=== PATIENT | male | born 1955 | race Caucasian/White ===

== ENCOUNTER → 2016-07-01 | Outpatient (CLI) | payer OTHER ==
[~2016-07-01] MED LIST: ASPI81TA21 PO; CLOP1TAB15 PO; EZET10TA41 PO; METO50TA7 PO; NTRGSL/4 UT; TRIA37.5 PO
[2016-07-01 17:21] LABS: BASO % 0.2 %; BASO ABS # 0.04 K/uL (0-0.2); COMPLETE YES; EOS % 0.2 %; HEMATOCRIT 41.5 % (42-52); IG% 0.3 %; LYMPH % 8.6 %; LYMPH ABS # 1.73 K/uL (1.2-3.4); MEAN CELL VOLUME 87.2 fL (80-100); MEAN CORPUSCULAR HGB CONC 33.3 g/dl (32-36); MEAN PLATELET VOLUME 9.1 fL (7.4-10.4); MONO % 8.9 %; NEUT % 81.8 %; PLATELET COUNT 343 K/uL (130-400); RED BLOOD COUNT 4.76 M/uL (4.7-6.1); WHITE BLOOD COUNT 20.18 K/uL (4.8-10.8)
[2016-07-01 18:00] LABS: ALT/SGPT 30 U/L (12-78); BLOOD UREA NITROGEN 24 mg/dl (7-18); BUN/CREATININE RATIO 18.3 (10-20); CARBON DIOXIDE 29 mmol/L (21-32); CHLORIDE 100 mmol/L (98-107); CHOLESTEROL 133 mg/dl (0-200); GLUCOSE 90 mg/dl (70-99); POTASSIUM 3.6 mmol/L (3.5-5.1); SODIUM 138 mmol/L (136-145)
[2016-07-01 18:04] LABS: ALB/GLOB RATIO 0.8 (0.9-2); ALKALINE PHOSPHATASE 101 U/L (45-117); AST/SGOT 22 U/L (15-37); CHOLESTEROL/HDL RATIO 3.1; HDL CHOLESTEROL 43 mg/dl; LDL CHOLESTEROL CALCULATED 77 mg/dl; TRIGLYCERIDES 66 mg/dl (0-150); VERY LOW DENSITY LIPOPROT CALC 13 mg/dl
[2016-07-01 18:15] LABS: CALCIUM 9.6 mg/dl (8.5-10.1)
[2016-07-02 08:21] LABS: ESTIMATED AVERAGE GLUCOSE 126 mg/dl; HA1C FLAG Normal (Normal)
== END | disposition home or self-care (01) ==
LOC: C.LAB1850 16:35
PROVIDERS: ATTEND Internal Medicine
DX: R73.01 Impaired fasting glucose (principal); I25.10 Atherosclerotic heart disease of native coronary artery without angina pectoris; N41.9 Inflammatory disease of prostate, unspecified

== ENCOUNTER → 2016-07-01 | Outpatient (CLI) | payer OTHER | END | disposition home or self-care (01) | LOC: C.LABSPEC 17:59 | PROVIDERS: ATTEND Internal Medicine | DX: R39.9 Unspecified symptoms and signs involving the genitourinary system (principal) ==

== ENCOUNTER → 2016-07-08 | Outpatient (CLI) | payer OTHER | END | disposition home or self-care (01) | LOC: C.PATHSPEC 17:10 | PROVIDERS: ATTEND Nurse Practitioner Family | DX: R31.0 Gross hematuria (principal) ==

== ENCOUNTER → 2016-07-14 | Outpatient (CLI) | payer OTHER ==
[~2016-07-14] MED LIST changes: +OPTIRAY 320 IV PRN
--- NOTE | 2016-07-14 10:25 | DIAGNOSTIC IMAGING REPORT ---
CT ABD/PELVIS COMBO CLINICAL HISTORY: Gross hematuria. COMPARISON STUDY: Noncontrast study dated 07/30/2011 TECHNIQUE: Unenhanced images were obtained through the abdomen and pelvis. The patient was injected with 50 cc Optiray 320. After 5 minute delay, the patient is rescanned in a dynamic helical fashion during intravenous administration of additional 44 cc of Optiray 320 CT DOSE: 2600.26 mGycm FINDINGS: Lower chest: There are minimal basilar atelectatic changes. Liver: There is a to small to characterize 3 mm hypodensity within the right hepatic lobe. There is 8 mm hypodensity within the left hepatic lobe, likely representing a cyst. Gallbladder: Unremarkable. Spleen: Normal in size and attenuation. Pancreas: Unremarkable. Adrenal glands: Unremarkable. Kidneys: No renal, ureteral, or bladder calculi are visualized. No solid renal masses are visualized. No collecting system lesions are visualized. Bowel: There are no transition zones indicate bowel obstruction. There is no evidence of acute appendicitis. There is no evidence of acute diverticulitis. Peritoneum: There is no intraperitoneal free air or abdominal ascites. There is a 31 mm fat-containing mass within the anterior peritoneum, likely representing an area of fat necrosis. This was present on the prior July 2011 study and appears slightly smaller. Vasculature: The abdominal aorta is normal in course and caliber. Adenopathy: None. Pelvic viscera: The prostate is mildly enlarged. Skeletal structures: No destructive osseous lesions are seen. There is bilateral L5 spondylolysis. IMPRESSION: 1. No renal, ureteral, or bladder calculi identified 2. No solid renal masses identified 3. No renal collecting system lesions identified 4. No acute inflammatory changes. No evidence of pathologic adenopathy. Electronically signed by: Franco Freeman M.D. 07/14/2016 10:24 AM Dictated Date/Time: 07/14/2016 10:18 AM
== END | disposition home or self-care (01) ==
LOC: C.CTS 09:10
PROVIDERS: ATTEND Nurse Practitioner Family
DX: R31.0 Gross hematuria (principal)

== ENCOUNTER → 2016-08-14 | Outpatient (CLI) | payer OTHER ==
[~2016-08-14] MED LIST changes: -OPTIRAY 320 IV PRN
[2016-08-14 09:21] LABS: BASO % 0.4 %; BASO ABS # 0.03 K/uL (0-0.2); COMPLETE YES; EOS % 2.9 %; HEMATOCRIT 39.2 % (42-52); IG% 0.1 %; LYMPH % 18.8 %; LYMPH ABS # 1.44 K/uL (1.2-3.4); MEAN CELL VOLUME 86.3 fL (80-100); MEAN CORPUSCULAR HEMOGLOBIN 29.3 pg (25-34); MEAN CORPUSCULAR HGB CONC 33.9 g/dl (32-36); MEAN PLATELET VOLUME 9.2 fL (7.4-10.4); NEUT % 68.8 %; PLATELET COUNT 205 K/uL (130-400); RED BLOOD COUNT 4.54 M/uL (4.7-6.1); WHITE BLOOD COUNT 7.68 K/uL (4.8-10.8)
== END | disposition home or self-care (01) ==
LOC: C.LAB 08:45
PROVIDERS: ATTEND Nurse Practitioner Family
DX: N41.9 Inflammatory disease of prostate, unspecified (principal); R31.0 Gross hematuria

== ENCOUNTER → 2016-11-23 | Outpatient (CLI) | payer OTHER | END | disposition home or self-care (01) | LOC: C.LAB1850 09:45 | PROVIDERS: ATTEND Urology | DX: R97.20 Elevated prostate specific antigen [PSA] (principal); N40.1 Benign prostatic hyperplasia with lower urinary tract symptoms ==

== ENCOUNTER → 2016-11-23 | Outpatient (CLI) | payer OTHER | END | disposition home or self-care (01) | LOC: C.LABSPEC 16:52 | PROVIDERS: ATTEND Urology | DX: R97.20 Elevated prostate specific antigen [PSA] (principal); N40.1 Benign prostatic hyperplasia with lower urinary tract symptoms; N52.9 Male erectile dysfunction, unspecified; N41.9 Inflammatory disease of prostate, unspecified; R31.0 Gross hematuria ==

== ENCOUNTER → 2017-09-16 | Outpatient (CLI) | payer OTHER ==
[~2017-09-16] MED LIST changes: +ASPI-319 PO; -ASPI81TA21 PO; -METO50TA7 PO; +METO50TA8 PO
[2017-09-16 12:31] LABS: BASO % 0.4 %; BASO ABS # 0.03 K/uL (0-0.2); EOS % 1.8 %; EOS ABS # 0.15 K/uL (0-0.5); HEMOGLOBIN 14.3 g/dL (14.0-18.0); IG# 0.02 K/uL (0.00-0.02); LYMPH % 19.5 %; LYMPH ABS # 1.67 K/uL (1.2-3.4); MEAN CELL VOLUME 85.8 fL (80-100); MEAN CORPUSCULAR HEMOGLOBIN 28.5 pg (25-34); MEAN CORPUSCULAR HGB CONC 33.3 g/dl (32-36); MEAN PLATELET VOLUME 9.9 fL (7.4-10.4); MONO % 8.9 %; MONO ABS # 0.76 K/uL (0.11-0.59); NEUT % 69.2 %; NEUT ABS # 5.93 K/uL (1.4-6.5); PLATELET COUNT 278 K/uL (130-400); RED CELL DISTRIBUTION WIDTH CV 13.3 % (11.5-14.5); RED CELL DISTRIBUTION WIDTH SD 41.7 fL (36.4-46.3); WHITE BLOOD COUNT 8.56 K/uL (4.8-10.8)
[2017-09-16 12:37] LABS: HEMOGLOBIN A1C 6.1 % (4.5-5.6)
[2017-09-16 13:02] LABS: ALBUMIN 3.8 gm/dl (3.4-5.0); ALKALINE PHOSPHATASE 104 U/L (45-117); ALT/SGPT 28 U/L (12-78); AST/SGOT 14 U/L (15-37); BLOOD UREA NITROGEN 21 mg/dl (7-18); CALCIUM 9.2 mg/dl (8.5-10.1); CARBON DIOXIDE 29 mmol/L (21-32); CHOLESTEROL 114 mg/dl (0-200); CREATININE 1.37 mg/dl (0.60-1.40); GLUCOSE 96 mg/dl (70-99); LDL CHOLESTEROL CALCULATED 49 mg/dl; POTASSIUM 3.6 mmol/L (3.5-5.1); SODIUM 137 mmol/L (136-145); TOTAL PROTEIN 7.7 gm/dl (6.4-8.2)
== END | disposition home or self-care (01) ==
LOC: C.LABBFT 10:00
PROVIDERS: ATTEND Internal Medicine
DX: I25.10 Atherosclerotic heart disease of native coronary artery without angina pectoris (principal); R73.01 Impaired fasting glucose

== ENCOUNTER → 2017-10-05 | Outpatient (CLI) | payer OTHER ==
--- NOTE | 2017-10-05 12:16 | DIAGNOSTIC IMAGING REPORT ---
R UPPER EXT JOINT WITHOUT CLINICAL HISTORY: 61 years-old Male presenting with RT SHOULDER PAIN. TECHNIQUE: Multisequence, multiplanar MR imaging of the right shoulder was performed without the use of intravenous contrast. IV contrast: None. COMPARISON: None. FINDINGS: Localizer images: Unremarkable. Bone marrow: Minimal cystic change at the footplate of the insertional fibers of the infraspinatus consistent with chronic degenerative change. Minimal bony edema also noted focally at the footplate of the insertional fibers of the supraspinatus suggesting chronic impingement. There is also deformity of the posterior superior lateral humeral head consistent with a Hill-Sachs lesion. Slight superior subluxation of the humeral head. Articular cartilage: Increased signal intensity of articular cartilage in the mid humeral head. Glenoid cartilage largely preserved though a focal defect inferiorly may be present (series 6 image 10). Labrum: Blunting of the anterior inferior labrum, which may represent prior injury or chronic degeneration. No well-defined tear is evident. Biceps and triceps tendons: Linear fluid signal intensity within the substance of the long head of the biceps in the intra-articular and proximal bicipital groove course consistent with longitudinal tear. This involves greater than 50% of the thickness in the intra-articular portion of the tendon. Short head of the biceps tendon intact. Long head of the triceps tendon intact. Rotator cuff: Complete tear of the anterior to mid portion of the supraspinatus (series 6 image 9). This involves the critical zone fibers. There is 1.5 cm of retraction of proximal fibers. A portion of the transitional fibers between the supraspinatus and infraspinatus appear intact. Thickening and increased signal intensity of the infraspinatus compatible with tendinosis. Additionally, there is focal linear fluid signal along the undersurface involving up to 50% thickness compatible with partial undersurface tear in the critical zone (series 6 image 11). Teres minor tendon intact. Tear of the proximal fibers of the subscapularis suggested by slight medial subluxation of the long head of the biceps tendon at the superior aspect of the bicipital groove. Transverse ligament fibers remain intact especially inferiorly. Acromioclavicular joint: Osteophytosis at the acromioclavicular joint. No associated bony edema or fluid in the joint. Inferior bony spurring results in significant impingement on the traversing supraspinatus tendon. Shoulder joint effusion: Trace shoulder joint effusion. Small amount of fluid in the subdeltoid-subacromial bursa. Muscle: Moderate fatty atrophy of the supraspinatus. Mild fatty atrophy of the subscapularis. Superficial soft tissue: No subcutaneous edema. IMPRESSION: 1. Findings suggest prior anterior shoulder dislocation with a pulse ox lesion and injury/chronic degeneration of the anterior inferior labrum. 2. Complete tear of anterior to mid fibers of the supraspinatus involving the critical zone with 1.5 cm of proximal fibers retraction. This may in part be due to significant inferior bony spurring arising from the acromioclavicular joint. 3. Partial undersurface tear of the infraspinatus. 4. Tear of the proximal fibers of the subscapularis with resultant slight medial subluxation of the long head of the biceps tendon at the superior aspect of the bicipital groove. 5. Longitudinal tear of the long head of the biceps tendon suspected. Electronically signed by: Roland Grajeda M.D. 10/05/2017 12:15 PM Dictated Date/Time: 10/05/2017 12:00 PM
== END | disposition home or self-care (01) ==
LOC: C.MRIBC 11:09
PROVIDERS: ATTEND Orthopaedic Surgery
DX: M75.100 Unspecified rotator cuff tear or rupture of unspecified shoulder, not specified as traumatic (principal)

== ENCOUNTER 2020-12-08 11:40 | Observation (INO) ==
[2020-12-08] MEDS ORDERED: SODIUM CHLORIDE 0.9% 1000ML 2,000 ML IV ONE (12:41)
[2020-12-08] MEDS ORDERED: ACETAMINOPHEN 1,000 MG/100 ML VIAL IV STA (12:41)
[2020-12-08] MEDS ORDERED: ALBUT/IPRATROP 3MG/0.5MG NEB 3 ML VIAL NEB STA (12:43)
[2020-12-08] MEDS ORDERED: guaiFENesin 600 MG TABCR PO STA (12:45)
[2020-12-08] MEDS ORDERED: dexAMETHasone**PF** 10 MG/ML VIAL IV ONE (12:45)
[2020-12-08 12:52] LABS: Basophils # (auto) 0.02 K/uL (0-0.2); Basophils % (auto) 0.3 %; Eosinophils # (auto) 0.01 K/uL (0-0.5); Eosinophils % (auto) 0.1 %; Hematocrit (blood only) 46.6 % (42-52); Immature Granulocytes # (auto) 0.04 K/uL (0.00-0.02); Immature Granulocytes % (auto) 0.5 %; Lymphocytes # (auto) 0.88 K/uL (1.2-3.4); Mean Corpuscular Hemoglobin 29.2 pg (25-34); Mean Corpuscular Hgb Conc 34.3 g/dL (32-36); Mean Platelet Volume 9.9 fL (7.4-10.4); Monocytes # (auto) 0.58 K/uL (0.11-0.59); Monocytes % (auto) 7.3 %; Neutrophils # (auto) 6.47 K/uL (1.4-6.5); Neutrophils % (auto) 80.8 %; Platelet Count 185 K/uL (130-400); RDW Coefficient of Variation 13.7 % (11.5-14.5); RDW Standard Deviation 42.8 fL (36.4-46.3); Red Blood Count 5.48 M/uL (4.7-6.1)
[2020-12-08 13:01] LABS: Albumin Level 3.4 gm/dl (3.4-5.0); BUN Creatinine Ratio 15.8 (10-20); Bilirubin Direct 0.3 mg/dl (0-0.2); Calcium 8.8 mg/dl (8.5-10.1); Creatinine Clr Calc Pharmacy 53.4 ml/min; Est GFR (African American) 43.3 ml/min; Est GFR (Non-African American) 37.3 ml/min; Magnesium 2.3 mg/dl (1.8-2.4); Potassium 3.4 mmol/L (3.5-5.1)
[2020-12-08 13:05] LABS: Partial Thromboplastin Ratio 1.1; Partial Thromboplastin Time 28.2 Seconds (21.0-31.0); Prothrombin Time 10.1 Seconds (9.0-12.0)
[2020-12-08 13:09] LABS: Albumin Globulin Ratio 0.7 (0.9-2); Phosphorus 2.2 mg/dl (2.5-4.9); Total Protein 8.4 gm/dl (6.4-8.2); Troponin I 0.035 ng/ml (0-0.045)
--- NOTE | 2020-12-08 13:18 | XRay Report ---
XR chest 1V portable CLINICAL HISTORY: Atypical chest pain. Shortness of breath. COMPARISON STUDY: Chest CT October 24, 2018. Chest radiograph January 16, 2018. FINDINGS: Lung volumes are normal. There is no pneumothorax or pleural effusion. Interstitial thicken ing and mild bilateral opacities are present. Cardiac size is at upper limits of normal. IMPRESSION: Interstitial thickening and mildbilateral airspace opacities. The findings favor viral p neumonia. ACT 112: Negative or not required by law. Electronically signed by: Riki Ugalde M.D. 12/08/2020 1:17 PM
--- NOTE | 2020-12-08 14:37 | Electrocardiogram Report ---
Test Reason : Blood Pressure : / mmHG Vent. Rate : 076 BPM Atrial Rate : 076 BPM P-R Int : 158 ms QRS Dur : 092 ms QT Int : 390 ms P-R-T Axes : 039 -33 067 degrees QTc Int : 438 ms Normal sinus rhythm Possible Left atrial enlargement Left axis deviation Abnormal ECG When compared with ECG of 24-OCT-2018 11:39, QRS axis Shifted left Confirmed by Greg Alvarez ([id number]) on 12/08/2020 2:37:04 PM Referred By: REFERRED SELF Confirmed By:Greg Alvarez
--- NOTE | 2020-12-08 14:53 | Emergency Department Note ---
Impression & Plan Pneumonia due to COVID-19 virus, MICK (acute kidney injury), Acute dehydration, Hypoxia ED Provider Note NAME: NIKHIL NELSON AGE: 65 SEX: M ARRIVES VIA: Walk-In INFORMANT: Patient, ED PROVIDER(S): Grady Mitchell MD CHIEF COMPLAINT: SOB, weakness, Covid-19 PLAN: Disposition: Admit MEDICAL DECISION MAKING: The patient is a pleasant 65-year-old gentleman with a past medical history of CAD, diastolic dysfunction, hypertension, hyperlipidemia who presents to the emergency department with worsening shortness of breath and dehydration reports he has been unable to eat or drink due to nausea and change in taste and smell. He reports vomiting but mostly sputum. He denies diarrhea. He denies chest pain but feels chest tightness. He is not vaccinated for COVID-19 but is interested in getting vaccinated following this illness. On arrival patient is uncomfortable no acute distress, febrile to 38.1 with vital signs stable. His O2 saturation was 93% and greater on room air. He appears clinically dry. He has a scant intermittent wheeze and lungs are otherwise clear. EKG without overt acute ischemia. Chest x-ray shows interstitial thickening and mild bilateral airspace opacities consistent with COVID-19 pneumonia. WBC, H/H and platelets within normal limits. Chemistry without metabolic acidosis. However he does have renal insufficiency acutely with creatinine of 1.8. BUN is 29 consistent with the patient's clinically dry appearance. Sodium 129 and potassium 3.4. Electrolytes otherwise without significant abnormality. AST is 58, nonspecific and consistent with the patient's COVID-19. LFTs otherwise unremarkable. Troponin 0.035, within normal limits. BNP within normal limits. Lipase is not elevated. COVID-19 PCR is positive. Given the patient's acute renal insufficiency in the setting of his COVID-19 p neumonia he is in agreement with plan for admission. Case was discussed with Dr. Bhakta, [facility] hospitalist, who will evaluate the patient for admission. Triage Nursing notes reviewed and agree them. Prior medical records reviewed Vital Signs: reviewed and remarkable for no significant abnormalities Differential diagnosis: Reactive airway disease, pneumonia, pneumothorax, COPD, CHF, infections, cardiac ischemia, pulmonary embolism, musculoskeletal, gastrointestinal, as well as other pathologies. ER treatment provided: See below. Diagnostics interpreted by me: ECG: Normal sinus rhythm, 76 bpm, no ectopy, no overt ST elevation or depression, QTC 438, QRS 92. Cardiac Monitoring: An order for continuous cardiac monitoring was placed and demonstrated NSR, 76 bpm, no ectopy, no overt ST elevation or depression. Laboratory studies: See below Imaging studies: See below Consultation(s): Case was discussed with Dr. Bhakta, [facility] hospitalist, who will evaluate the patient for admission. HPI: The patient is a pleasant 65-year-old gentleman with a past medical history of CAD, diastolic dysfunction, hypertension, hyperlipidemia who presents to the emergency department with worsening shortness of breath and dehydration reports he has been unable to eat or drink due to nausea and change in taste and smell. He reports vomiting but mostly sputum. He denies diarrhea. He denies chest pain but feels chest tightness. He is not vaccinated for COVID-19 but is interested in getting vaccinated following this illness. ROS: See above HPI for pertinent positives & negatives. A total of 10 systems reviewed and were otherwise negative. PAST MEDICAL HISTORY:See Below PAST SURGICAL HISTORY:See Below FAMILY HISTORY:See Below SOCIAL HISTORY:See Below HOME MEDICATIONS:See Below ALLERGIES:See Below VITALS:See Below PHYSICAL EXAMINATION: GENERAL: Awake, alert, uncomfortable/fatigued-appearing, in no distress, BMI 38.9. HENT: Normocephalic, atraumatic. Oropharynx with dry mucous membranes and otherwise unremarkable. EYES: Normal conjunctiva. Sclera non-icteric. NECK: Supple. No nuchal rigidity. FROM. No JVD. RESPIRATORY: Scant intermittent wheeze and lungs are otherwise clear. CARDIAC: Regular rate, normal rhythm. Extremities warm and well perfused. Pulses equal. ABDOMEN: Soft, non-distended. No tenderness to palpation. No rebound or guarding. No masses. RECTAL: Deferred. MUSCULOSKELETAL: Chest examination reveals no tenderness. The back is symmetrical on inspection without obvious abnormality. There is no CVA tenderness to palpation. No joint edema. LOWER EXTREMITIES: Calves are equal size bilaterally and non-tender. No edema. No discoloration. NEURO: Normal sensorium. No sensory or motor deficits noted. SKIN: No rash or jaundice noted. Grady Mitchell MD Past Med/Surg History Medical History (Updated 12/08/20 @ 23:00 by Grady Mitchell MD) BPH (benign prostatic hyperplasia) CAD (coronary artery disease) S/p LAD stent, and RCA stents x 3 in 2006. Complete rotator cuff tear or rupture of right shoulder, not specified as traumatic Family history of colon cancer History of anesthesia reaction SOMETIMES SLOW TO COME OUT OF IT History of melanoma History of psoriatic arthritis Hx of prostatitis Hx of psoriasis Hyperlipidemia Hypertension Obesity On anticoagulant therapy PLAVIX SINCE STENT PLACEMENT 2006 Osteoarthritis Snores SOB (shortness of breath) on exertion WHEN LIFTING THINGS AND WITH 1-2 FLIGHTS OF STAIRS - PT NOTIFIED CARDIO, HAD APPOINTMENT WITH DENIES CHEST PAIN Surgical History History of arthroscopy RIGHT KNEE MENISCUS History of cardiac cath 2002-3 STENTS FIRST TIME/6 MONTHS LATER 1 STENT-TOTAL 4 STENTS History of colonoscopy History of herniorrhaphy History of knee surgery History of repair of right rotator cuff Family History Brother Family history of diabetes mellitus Grandmother Family history of diabetes mellitus Father Family hx of colon cancer Prostate cancer Mother Myocardial infarction Hx of CABG Hypertension Other No family history of adverse response to anesthesia Social History Smoking Status: Never smoker Second Hand Exposure: No; Hx Alcohol Use: No Hx Substance Use: No Preferred Language: Welsh Communication Ability: Effective Visual Impairment: No Limitations Cloud Physicist Required: No Beliefs That Will Affect Care: None Current Living Situation: Spouse Current Living Situation Comment: Lives @ home w/ spouse Feels Safe at Home: Yes Safety Concerns: Feels Safe At This Time Dental Care, Regularly: No Physical Activity Frequency: Daily Seatbelt Use: always Sunscreen Use: Yes Assistive Devices: Oxygen - Continuous Assistive Devices Comment: Pt. uses walker and cane @ home Allergies Allergies Allergy/AdvReac Type Severity Reaction Status Date / Time No Known Allergies Allergy Unknown Verified 12/08/20 16:17 Home Meds Home Medications Medication Instructions Recorded Confirmed nitroglycerin 0.4 mg sublingual 0.4 mg SUBLINGUAL UD PRN 01/13/18 12/08/20 tablet (Nitrostat) glucosamine sulf dipot 1 cap PO BID 10/24/18 12/08/20 chlr,msm,chond 550 mg-C 30 mg-adelaide 1 mg capsule (Glucosamine Chondroitin) aspirin 81 mg tablet,delayed 81 mg PO DAILY 12/08/20 12/08/20 release Previous Rx's Medication Instructions Recorded dutasteride 0.5 mg capsule 0.5 mg PO DAILY #90 cap 03/04/20 tamsulosin 0.4 mg capsule 0.4 mg PO DAILY #90 cap 03/04/20 atorvastatin 80 mg tablet 80 mg PO HS #90 tab 04/28/20 triamterene 37.5 1 cap PO QAM #90 cap 04/28/20 mg-hydrochlorothiazide 25 mg capsule clopidogrel 75 mg tablet 75 mg PO QAM #90 tab 08/11/20 metoprolol succinate 50 mg 50 mg PO QAM #90 tab 08/11/20 tablet,extended release 24 hr betamethasone dipropionate 0.05 % 1 applic TOPICAL BID #135 g 11/12/20 topical ointment triamcinolone acetonide 0.1 % 1 applic TOPICAL BID PRN #80 g 11/12/20 topical cream azithromycin 250 mg tablet See Rx Instructions PO .COMPLEX #6 12/04/20 tab Results & Data (ED) Vital Signs Vital Signs - 24 hr 12/08/20 11:42 12/08/20 12:13 12/08/20 12:15 Temperature 36.9 C 38.1 C H Temperature Source Temporal Artery Scan Oral Pulse Rate 78 Pulse Rate [Apical] 78 Pulse Rhythm Pulse Rhythm [Apical] Regular Pulse Strength [Apical] Normal Respiratory Rate 25 H 22 Respiratory Effort / Characteristics Spontaneous Non-Labored Spontaneous Respiratory Depth Normal Respiratory Pattern Regular Blood Pressure 116/65 Blood Pressure [Right Arm] 134/67 Blood Pressure Mean 82 Blood Pressure Mean [Right Arm] 89 Blood Pressure Position [Right Arm] Semi-fowlers Pulse Oximetry 96 96 96 Oxygen Delivery Method Room Air Room Air Room Air Oxygen Flow Rate 0 Sepsis Recent Fever Within 48 Hours Yes Sepsis New/Unexplained Change in Mental Status No Sepsis Action Taken by Nursing No Action Required 12/08/20 13:08 12/08/20 13:18 12/08/20 14:00 Temperature Temperature Source Pulse Rate 76 Pulse Rate [Apical] 74 74 Pulse Rhythm Regular Pulse Rhythm [Apical] Regular Pulse Strength [Apical] Normal Respiratory Rate 20 20 22 Respiratory Effort / Characteristics Spontaneous Short of Breath Non-Labored Spontaneous Respiratory Depth Normal Respiratory Pattern Regular Blood Pressure Blood Pressure [Right Arm] 100/50 L Blood Pressure Mean Blood Pressure Mean [Right Arm] 66 Blood Pressure Position [Right Arm] Lying Pulse Oximetry 95 96 93 Oxygen Delivery Method Room Air Room Air Room Air Oxygen Flow Rate 0 Sepsis Recent Fever Within 48 Hours Sepsis New/Unexplained Change in Mental Status Sepsis Action Taken by Nursing 12/08/20 14:41 12/08/20 15:00 Temperature Temperature Source Pulse Rate Pulse Rate [Apical] 72 Pulse Rhythm Pulse Rhythm [Apical] Pulse Strength [Apical] Respiratory Rate 27 H Respiratory Effort / Characteristics Respiratory Depth Respiratory Pattern Blood Pressure Blood Pressure [Right Arm] 149/87 H Blood Pressure Mean Blood Pressure Mean [Right Arm] 107 Blood Pressure Position [Right Arm] Pulse Oximetry 96 95 Oxygen Delivery Method Room Air Oxygen Flow Rate 0 Sepsis Recent Fever Within 48 Hours Sepsis New/Unexplained Change in Mental Status Sepsis Action Taken by Nursing Laboratory Data Attestation: I reviewed the patient's lab results. Result diagrams: 12/08/20 12:25 12/08/20 12:25 Lab Results 12/08/20 12/08/20 12/08/20 Range/Units 12:25 12:25 12:25 WBC 8.00 (4.8-10.8) K/uL RBC 5.48 (4.7-6.1) M/uL Hgb 16.0 (14.0-18.0) g/dL Hct 46.6 (42-52) % MCV 85.0 (80-100) fL MCH 29.2 (25-34) pg MCHC 34.3 (32-36) g/dL RDW Std Deviation 42.8 (36.4-46.3) fL RDW Coeff of Michael 13.7 (11.5-14.5) % Plt Count 185 (130-400) K/uL MPV 9.9 (7.4-10.4) fL Immature Gran % (Auto) 0.5 % Neut % (Auto) 80.8 % Lymph % (Auto) 11.0 % [place] % (Auto) 7.3 % Eos % (Auto) 0.1 % Baso % (Auto) 0.3 % Neut # (Auto) 6.47 (1.4-6.5) K/uL Lymph # (Auto) 0.88 L (1.2-3.4) K/uL [place] # (Auto) 0.58 (0.11-0.59) K/uL Eos # (Auto) 0.01 (0-0.5) K/uL Baso # (Auto) 0.02 (0-0.2) K/uL Immature Gran # (Auto) 0.04 H (0.00-0.02) K/uL PT 10.1 (9.0-12.0) Seconds INR 1.0 (0.9-1.1) APTT 28.2 (21.0-31.0) Seconds PTT Ratio 1.1 Sodium 129 L (136-145) mmol/L Potassium 3.4 L (3.5-5.1) mmol/L Chloride 94 L (98-107) mmol/L Carbon Dioxide 26 (21-32) mmol/L Anion Gap 9.0 (3-11) BUN 29 H (7-18) mg/dl Creatinine 1.83 H (0.6-1.4) mg/dl Est Cr Clr Drug Dosing 53.4 ml/min Est GFR ( Amer) 43.3 ml/min Est GFR (Non-Af Amer) 37.3 ml/min BUN/Creatinine Ratio 15.8 (10-20) Glucose 107 H (70-99) mg/dl Osmolality (280-300) mOsm/kg Calcium 8.8 (8.5-10.1) mg/dl Phosphorus 2.2 L (2.5-4.9) mg/dl Magnesium 2.3 (1.8-2.4) mg/dl Total Bilirubin 1.0 (0.2-1) mg/dl Direct Bilirubin 0.3 H (0-0.2) mg/dl AST 58 H (15-37) U/L ALT 56 (12-78) U/L Alkaline Phosphatase 73 (45-117) U/L Troponin I 0.035 (0-0.045) ng/ml NT-Pro-B Natriuret Pep 791 (0-900) pg/ml Total Protein 8.4 H (6.4-8.2) gm/dl Albumin 3.4 (3.4-5.0) gm/dl Globulin 5.0 H (2.5-4.0) gm/dl Albumin/Globulin Ratio 0.7 L (0.9-2) Lipase 253 (73-393) U/L Urine Osmolality (500-800) mOsm/kg Ur Random Sodium mmol/L COVID-19 Eval Order SARS-CoV-2 (PCR) (Negative) 12/08/20 12/08/20 12/08/20 Range/Units 13:20 13:20 14:16 WBC (4.8-10.8) K/uL RBC (4.7-6.1) M/uL Hgb (14.0-18.0) g/dL Hct (42-52) % MCV (80-100) fL MCH (25-34) pg MCHC (32-36) g/dL RDW Std Deviation (36.4-46.3) fL RDW Coeff of Michael (11.5-14.5) % Plt Count (130-400) K/uL MPV (7.4-10.4) fL Immature Gran % (Auto) % Neut % (Auto) % Lymph % (Auto) % [place] % (Auto) % Eos % (Auto) % Baso % (Auto) % Neut # (Auto) (1.4-6.5) K/uL Lymph # (Auto) (1.2-3.4) K/uL [place] # (Auto) (0.11-0.59) K/uL Eos # (Auto) (0-0.5) K/uL Baso # (Auto) (0-0.2) K/uL Immature Gran # (Auto) (0.00-0.02) K/uL PT (9.0-12.0) Seconds INR (0.9-1.1) APTT (21.0-31.0) Seconds PTT Ratio Sodium (136-145) mmol/L Potassium (3.5-5.1) mmol/L Chloride (98-107) mmol/L Carbon Dioxide (21-32) mmol/L Anion Gap (3-11) BUN (7-18) mg/dl Creatinine (0.6-1.4) mg/dl Est Cr Clr Drug Dosing ml/min Est GFR ( Amer) ml/min Est GFR (Non-Af Amer) ml/min BUN/Creatinine Ratio (10-20) Glucose (70-99) mg/dl Osmolality 283 (280-300) mOsm/kg Calcium (8.5-10.1) mg/dl Phosphorus (2.5-4.9) mg/dl Magnesium (1.8-2.4) mg/dl Total Bilirubin (0.2-1) mg/dl Direct Bilirubin (0-0.2) mg/dl AST (15-37) U/L ALT (12-78) U/L Alkaline Phosphatase (45-117) U/L Troponin I (0-0.045) ng/ml NT-Pro-B Natriuret Pep (0-900) pg/ml Total Protein (6.4-8.2) gm/dl Albumin (3.4-5.0) gm/dl Globulin (2.5-4.0) gm/dl Albumin/Globulin Ratio (0.9-2) Lipase (73-393) U/L Urine Osmolality (500-800) mOsm/kg Ur Random Sodium mmol/L COVID-19 Eval Order Covid19 at [facility] SARS-CoV-2 (PCR) POSITIVE A* (Negative) 12/08/20 12/08/20 Range/Units 14:44 14:44 WBC (4.8-10.8) K/uL RBC (4.7-6.1) M/uL Hgb (14.0-18.0) g/dL Hct (42-52) % MCV (80-100) fL MCH (25-34) pg MCHC (32-36) g/dL RDW Std Deviation (36.4-46.3) fL RDW Coeff of Michael (11.5-14.5) % Plt Count (130-400) K/uL MPV (7.4-10.4) fL Immature Gran % (Auto) % Neut % (Auto) % Lymph % (Auto) % [place] % (Auto) % Eos % (Auto) % Baso % (Auto) % Neut # (Auto) (1.4-6.5) K/uL Lymph # (Auto) (1.2-3.4) K/uL [place] # (Auto) (0.11-0.59) K/uL Eos # (Auto) (0-0.5) K/uL Baso # (Auto) (0-0.2) K/uL Immature Gran # (Auto) (0.00-0.02) K/uL PT (9.0-12.0) Seconds INR (0.9-1.1) APTT (21.0-31.0) Seconds PTT Ratio Sodium (136-145) mmol/L Potassium (3.5-5.1) mmol/L Chloride (98-107) mmol/L Carbon Dioxide (21-32) mmol/L Anion Gap (3-11) BUN (7-18) mg/dl Creatinine (0.6-1.4) mg/dl Est Cr Clr Drug Dosing ml/min Est GFR ( Amer) ml/min Est GFR (Non-Af Amer) ml/min BUN/Creatinine Ratio (10-20) Glucose (70-99) mg/dl Osmolality (280-300) mOsm/kg Calcium (8.5-10.1) mg/dl Phosphorus (2.5-4.9) mg/dl Magnesium (1.8-2.4) mg/dl Total Bilirubin (0.2-1) mg/dl Direct Bilirubin (0-0.2) mg/dl AST (15-37) U/L ALT (12-78) U/L Alkaline Phosphatase (45-117) U/L Troponin I (0-0.045) ng/ml NT-Pro-B Natriuret Pep (0-900) pg/ml Total Protein (6.4-8.2) gm/dl Albumin (3.4-5.0) gm/dl Globulin (2.5-4.0) gm/dl Albumin/Globulin Ratio (0.9-2) Lipase (73-393) U/L Urine Osmolality 561 (500-800) mOsm/kg Ur Random Sodium 12 mmol/L COVID-19 Eval Order SARS-CoV-2 (PCR) (Negative) Administered Medications Enoxaparin Sodium (Enoxaparin Inj 40 Mg/0.4 Ml Syr) 40 mg SQ Q12H JESSICA Stop: 01/07/21 20:59 Last Admin: 12/08/20 21:20 Dose: 40 mg Documented by: [id number] Sodium Chloride (Nss 1000ml) 1,000 mls @ 100 mls/hr IV .Q10H JESSICA Stop: 12/09/20 05:32 Last Admin: 12/08/20 20:05 Dose: 100 mls/hr Documented by: [id number] Discontinued Medications Albuterol (Albut/Ipratrop 3mg/0.5mg Neb 3 Ml Vial) 3 ml NEB NOW STA Stop: 12/08/20 12:44 Last Admin: 12/08/20 13:18 Dose: 3 ml Documented by: [id number] Dexamethasone Sodium Phosphate (DexamethasonePf 10 Mg/Ml Vial) 10 mg IV NOW ONE Stop: 12/08/20 12:46 Last Admin: 12/08/20 13:15 Dose: 10 mg Documented by: [id number] Guaifenesin (Guaifenesin 600 Mg Tabcr) 600 mg PO NOW STA Stop: 12/08/20 12:46 Last Admin: 12/08/20 13:14 Dose: 600 mg Documented by: [id number] Sodium Chloride (Nss 1000ml) 2,000 mls @ 999 mls/hr IV .Q2H1M ONE Stop: 12/08/20 14:41 Last Infusion: 12/08/20 16:23 Dose: 0 mls/hr Documented by: [id number] Admin: 12/08/20 13:11 Dose: 999 mls/hr Documented by: [id number] Acetaminophen (Ofirmev) 1,000 mg in 100 mls @ 400 mls/hr IV NOW STA Stop: 12/08/20 12:55 Last Infusion: 12/08/20 16:23 Dose: 0 mls/hr Documented by: [id number] Admin: 12/08/20 13:19 Dose: 400 mls/hr Documented by: [id number] Potassium Chloride (Potassium Chloride Crtab 20 Meq Tabcr) 40 meq PO NOW STA Stop: 12/08/20 16:18 Last Admin: 12/08/20 17:21 Dose: 40 meq Documented by: [id number] Imaging Data Radiologist's Impression: Chest X-Ray 12/08/20 12:41 XR chest 1V portable CLINICAL HISTORY: Atypical chest pain. Shortness of breath. COMPARISON STUDY: Chest CT October 24, 2018. Chest radiograph January 16, 2018. FINDINGS: Lung volumes are normal. There is no pneumothorax or pleural effusion. Interstitial thickening and mild bilateral opacities are present. Cardiac size is at upper limits of normal. IMPRESSION: Interstitial thickening and mildbilateral airspace opacities. The findings favor viral pneumonia. ACT 112: Negative or not required by law. Electronically signed by: Riki Ugalde M.D. 12/08/2020 1:17 PM Discharge Plan Visit Data Chief Complaint: Shortness of Breath/Dyspnea Stated Complaint: +COVID TEST,DIZZY,SOB ED Provider: Grady Mitchell Discharge Problem: Pneumonia due to COVID-19 virus, MICK (acute kidney injury), Acute dehydration, Hypoxia Patient Disposition: Admitted As Inpatient Discharge Instructions Interventions: ED Discharge Assessment Last Done: 12/08/20 18:30
[2020-12-08] MEDS ORDERED: POTASSIUM CHLORIDE CRTAB 20 MEQ TABCR PO STA (16:17)
--- NOTE | 2020-12-08 16:17 | History & Physical Report ---
Date of Service December 08, 2020 Assessment & Plan (1) Pneumonia due to COVID-19 virus: Plan: -Although patient does have evidence of opacities consistent with Covid on x- ray, fortunately he is not requiring any supplemental oxygen -Does not meet requirements for remdesivir (not requiring supplemental oxygen and is outside of the window from symptom onset) -Would not use Decadron at this point as benefit would not outweigh the risk given his MICK (2) Dehydration: Plan: -Primary issue seems to be dehydration which is causing abdominal effect -We will gently hydrate with NSS overnight and reassess in the morning. Will give fluids cautiously as most patients requiring hospitalization for Covid end up becoming volume overloaded and requiring diuresis at some point -Likely due to limited oral intake with subsequent nausea/dry heaves and diarrhea in addition to his Dyazide (which will be held for now) (3) Electrolyte abnormality: Plan: -Hyponatremia and hypokalemia--> likely secondary to #2 -Again, NSS overnight -Supplement potassium -Follow-up labs in a.m. to trend -Hold Dyazide for now (4) MICK (acute kidney injury): Plan: -Likely secondary to #2 -IVF on board -Follow-up labs in a.m. (5) Transaminitis: Plan: -Exact etiology unclear -Perhaps secondary to Tylenol ingestion prior to this hospitalization (for which patient has been self-medicating due to fever and myalgias) -This is not a significant elevation -Will monitor -Hold statin for now (6) CAD (coronary artery disease): Plan: -Continue dual antiplatelet therapy -Hold statin for now as outlined above -Continue beta-blockade (7) Hypercholesteremia: Plan: -Hold statin as outlined above (8) Hypertension: Plan: -Continue beta-blockade. Hold Dyazide as outlined above (9) Psoriasis: Plan: -Patient takes topical medication. No immunosuppressive medication on board (10) BPH (benign prostatic hyperplasia): Plan: -Continue Flomax and Avodart as prior to hospitalization Plan: -Plan of care discussed with Dr. Bhakta. Further orders as warranted History of Present Illness Chief Complaint: Weakness, dizziness, shortness of breath and known Covid Primary Care Provider: Martín Capellan MD Mr. Singleton is a 65-year-old white male with an underlying past medical history of CAD s/p [place] X2, psoriasis (not on immunosuppressive therapy), HTN, and HLD. Developed flulike symptoms approximately 11 days ago. Include: Fevers, chills, poor appetite, nausea with dry heaves, diarrhea, myalgias. This has since progressed into dizziness, generalized weakness, and shortness of breath. Had a Covid test on 12/03 that came back positive. Was empirically started on azithrom ycin. Has been monitoring his pulse ox at home and the lowest has been 94%. Came to the ED primarily due to generalized weakness now affecting his ability to ambulate. Claims he has had little to no oral intake in approximately 1 week. Lives with his who also has tested positive for Covid. Patient is unvaccinated. Allergies Allergy/AdvReac Type Severity Reaction Status Date / Time No Known Allergies Allergy Unknown Verified 12/08/20 16:17 Home Medications Medication Instructions Recorded Confirmed Type nitroglycerin 0.4 mg sublingual 0.4 mg SUBLINGUAL UD PRN 01/13/18 12/08/20 History tablet (Nitrostat) glucosamine sulf dipot 1 cap PO BID 10/24/18 12/08/20 History chlr,msm,chond 550 mg-C 30 mg-adelaide 1 mg capsule (Glucosamine Chondroitin) dutasteride 0.5 mg capsule 0.5 mg PO DAILY #90 cap 03/04/20 12/08/20 Rx tamsulosin 0.4 mg capsule 0.4 mg PO DAILY #90 cap 03/04/20 12/08/20 Rx atorvastatin 80 mg tablet 80 mg PO HS #90 tab 04/28/20 12/08/20 Rx clopidogrel 75 mg tablet 75 mg PO QAM #90 tab 08/11/20 12/08/20 Rx metoprolol succinate 50 mg 50 mg PO QAM #90 tab 08/11/20 12/08/20 Rx tablet,extended release 24 hr betamethasone dipropionate 0.05 % 1 applic TOPICAL BID #135 g 11/12/20 12/08/20 Rx topical ointment triamcinolone acetonide 0.1 % 1 applic TOPICAL BID PRN #80 g 11/12/20 12/08/20 Rx topical cream aspirin 81 mg tablet,delayed 81 mg PO DAILY 12/08/20 12/08/20 History release dexamethasone 6 mg tablet 6 mg PO DAILY #7 tab 12/10/20 Rx (Decadron) Past Med/Surg History Medical History (Updated 12/08/20 @ 23:00 by Grady Mitchell MD) BPH (benign prostatic hyperplasia) CAD (coronary artery disease) S/p LAD stent, and RCA stents x 3 in 2005. Complete rotator cuff tear or rupture of right shoulder, not specified as traumatic Family history of colon cancer History of anesthesia reaction SOMETIMES SLOW TO COME OUT OF IT History of melanoma History of psoriatic arthritis Hx of prostatitis Hx of psoriasis Hyperlipidemia Hypertension Obesity On anticoagulant therapy PLAVIX SINCE STENT PLACEMENT 2005 Osteoarthritis Snores SOB (shortness of breath) on exertion WHEN LIFTING THINGS AND WITH 1-2 FLIGHTS OF STAIRS - PT NOTIFIED CARDIO, HAD APPOINTMENT WITH DENIES CHEST PAIN Surgical History History of arthroscopy RIGHT KNEE MENISCUS History of cardiac cath 2002-3 STENTS FIRST TIME/6 MONTHS LATER 1 STENT-TOTAL 4 STENTS History of colonoscopy History of herniorrhaphy History of knee surgery History of repair of right rotator cuff Family History Brother Family history of diabetes mellitus Grandmother Family history of diabetes mellitus Father Family hx of colon cancer Prostate cancer Mother Myocardial infarction Hx of CABG Hypertension Other No family history of adverse response to anesthesia Social History Smoking Status: Never smoker Second Hand Exposure: No; Hx Alcohol Use: No Hx Substance Use: No Preferred Language: Bangladeshi Communication Ability: Effective Visual Impairment: No 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 Otherwise, patient denies nasal/sinus congestion, sore throat, cough, loss of taste/smell, chest pain, palpitations, orthopnea, PND, peripheral edema, abdo oliver pain, melena, hematochezia, dysuria, hematuria, urinary frequency, back pain, joint pain or swelling. Easy bruising or bleeding, polydipsia, polyuria, polyphagia. Physical Exam Physical Exam: General: Resting comfortably in his hospital bed. Appears ill but not toxic. NAD. HEENT: Head is AT/NC buccal mucosa dry and tacky Neck: No JVD. Negative hepatojugular reflex Cardiac: Distant heart sounds with 1/6 CINDY Lungs: Appears anxious resulting in some mild tachypnea but breathing is nonlabored. Speaking full sentences on ambient air. Diminished breath sounds throughout without W/R/R Abdomen: Normoactive X4. Soft and nontender in all quadrants. Extremities: No peripheral clubbing cyanosis or edema Neuro: A&O X4 cranial nerves II through XII are grossly intact no focal neuro deficits Skin: Psoriatic changes noted of the knees bilaterally Psych: Appropriate affect pleasant and cooperative Results & Data Results & Data ([facility]) Vital Signs (Past 12 Hours) Vital Signs Temp Pulse Pulse Resp BP BP Pulse Ox 12/08/20 15:00 72 27 H 149/87 H 95 12/08/20 14:41 96 12/08/20 14:00 74 22 100/50 L 93 12/08/20 13:18 74 20 96 12/08/20 13:08 76 20 95 12/08/20 12:15 38.1 C H 78 22 134/67 96 12/08/20 12:13 96 12/08/20 11:42 36.9 C 78 25 H 116/65 96 Laboratory Results 12/08/20 12:25 12/08/20 12:25 Total bilirubin: 1.0 AST: 58 ALT: 56 Diagnostic Findings CXR: Increased interstitial lung markings consistent with Covid PNA Code Status & VTE Plan VTE Prophylaxis Plan VTE Prophylaxis will be ordered: Yes Supervising Physician Co-Signing Physician Notes Attending note: patient seen and examined with Sharla CHRISTIAN. I agree with her assessment and plan, ROS, history, exam. I personally reviewed the chart, labs, imaging. COVID 19 pneumonia, weakness, dehydration mild symptoms, wean oxygen as tolerated dexamethasone 6mg IV daily supportive care, hopefully can be discharged in a few days PG Care Time/CCT Total # of Minutes Spent Total Time Spent with Patient: Total time spent is greater than 50% in coordination of care (as documented) at patient's floor/unit and/or counseling patient: [place] [address] Initial Inpt Care Lvl 3 Patient Type New Medical Decision Making High Complexity Diagnoses Pneumonia due to COVID-19 virus U07.1; J12.82 Dehydration E86.0 Electrolyte abnormality E87.8 MICK (acute kidney injury) N17.9 CAD (coronary artery disease) I25.10 Hypercholesteremia E78.00 Hypertension I10 Psoriasis L40.9 BPH (benign prostatic hyperplasia) N40.0 Transaminitis R74.01
[2020-12-08] MEDS ORDERED: SODIUM CHLORIDE 0.9% 1000ML 1,000 ML IV SCH (19:33)
[2020-12-08] MEDS ORDERED: ACETAMINOPHEN 325 MG TAB PO PRN (19:33)
[2020-12-08] MEDS ORDERED: ALUMINUM/MAGNESIUM SUSP 30 ML UDC PO PRN (19:33)
[2020-12-08] MEDS ORDERED: ONDANSETRON INJ 2 MG/ML 2 ML VIAL IV PRN (19:33)
[2020-12-08] MEDS ORDERED: NITROGLYCERIN SL 0.4 MG/TAB TAB SL PRN (19:33)
[2020-12-08] MEDS: ENOXAPARIN INJ 40 MG/0.4 ML SYR SQ SCH (21:20)
[2020-12-08] MEDS: DUTASTERIDE: ORDER AWAITING ACTION SCH (23:17)
[2020-12-09 07:47] LABS: Hematocrit (blood only) 41.6 % (42-52); Hemoglobin 14.3 g/dL (14.0-18.0); Mean Corpuscular Hgb Conc 34.4 g/dL (32-36); Mean Corpuscular Volume 84.4 fL (80-100); Mean Platelet Volume 9.8 fL (7.4-10.4); Platelet Count 197 K/uL (130-400); RDW Coefficient of Variation 13.8 % (11.5-14.5); RDW Standard Deviation 42.9 fL (36.4-46.3); Red Blood Count 4.93 M/uL (4.7-6.1); White Blood Count 12.48 K/uL (4.8-10.8)
[2020-12-09] MEDS: TAMSULOSIN HCL 0.4 MG CAP PO SCH (08:06)
[2020-12-09] MEDS: METOPROLOL SUCC 50MG EXT REL TAB PO SCH (08:06)
[2020-12-09] MEDS: CLOPIDOGREL BISULFATE 75 MG TAB PO SCH (08:06)
[2020-12-09] MEDS: ASPIRIN 81 MG ECTAB PO SCH (08:07)
[2020-12-09] MEDS: ENOXAPARIN INJ 40 MG/0.4 ML SYR SQ SCH ×2 (08:08→20:17)
[2020-12-09] MEDS: DUTASTERIDE: ORDER AWAITING ACTION SCH ×3 (08:09→23:25)
[2020-12-09 08:17] LABS: Albumin Globulin Ratio 0.6 (0.9-2); Albumin Level 2.6 gm/dl (3.4-5.0); BUN Creatinine Ratio 21.9 (10-20); Bilirubin,Total 0.7 mg/dl (0.2-1); Calcium 8.4 mg/dl (8.5-10.1); Creatinine Clr Calc Pharmacy 84.7 ml/min; Est GFR (African American) 73.6 ml/min; Est GFR (Non-African American) 63.5 ml/min; Globulin 4.4 gm/dl (2.5-4.0); Magnesium 2.2 mg/dl (1.8-2.4)
--- NOTE | 2020-12-09 15:20 | Hospitalist Progress Note ---
Date of Service December 09, 2020 Assessment & Plan (1) Pneumonia due to COVID-19 virus: Plan: -Although patient does have evidence of opacities consistent with Covid on x- ray, fortunately he is not requiring any supplemental oxygen -Does not meet requirements for remdesivir (not requiring supplemental oxygen and is outside of the window from symptom onset) -Patient was given 1 dose of Decadron in the ED last night. No subsequent doses given; however, we will add this given the end expiratory wheezes noted (2) Dehydration: Plan: -Has since resolved- with gentle IV hydration -Patient still appears to be slightly volume contracted however we will hold off on any added IV hydration (given risk for volume overload given active Covid). -I have encouraged him to push his fluids. We will continue to hold thiazide diuretic to allow him to "catch up".. (3) Electrolyte abnormality: Plan: -Hyponatremia and hypokalemia--> likely secondary to #2 -All likely hypovolemic -Hypokalemia replaced and resolved -Hyponatremia resolved with gentle IV hydration (4) MICK (acute kidney injury): Plan: -Likely secondary to #2 -Resolved with gentle IV hydration. As reported above, no continued IV hydration but encouraged patient to push oral intake -Continue to hold Dyazide for now (5) Transaminitis: Plan: -Exact etiology unclear -Perhaps multifactorial (Patient on chronic statin therapy, was using Tylenol as an antipyretic, and could perhaps be secondary to Covid infection) -This is not a significant elevation in downtrending -Will continue to monitor -Continue to hold statin for now (6) CAD (coronary artery disease): Plan: -Continue dual antiplatelet therapy -Hold statin for now as outlined above -Continue beta-blockade (7) Hypercholesteremia: Plan: -Hold statin as outlined above (8) Hypertension: Plan: -Continue beta-blockade. Hold Dyazide as outlined above (9) Psoriasis: Plan: -Patient takes topical medication. No immunosuppressive medication on board (10) BPH (benign prostatic hyperplasia): Plan: -Continue Flomax and Avodart as prior to hospitalization Plan: -Plan of care discussed with Dr. Kumari. Further orders as warranted Admission and Anticipated Discharge Date Admission Date: December 08, 2020 Subjective Patient seen on daily rounds today. Was placed on supplemental oxygen (1 L) upon transport from the ED to the floor last night not because he became hypoxic but because he became more short of breath. Pulse ox has been above 90% on room air. Did receive 1 L of IV fluids overnight and his electrolytes are improved today. His sodium has gone from 1 29-1 36 and his creatinine has gone from 1.8-1.18. Overall, patient is still feeling weak but feels better compared to when he came in. He denies any subsequent fevers. Denies chills, headache, nasal congestion, sore throat, cough, chest pain, shortness of breath at rest, abdominal pain, nausea or vomiting. He is getting dyspneic with limited exertion such as toileting. Pulse ox is not dropping below 90%. Review of Systems Review of Systems: All systems reviewed and are unremarkable except as noted in HPI and below Denies fevers, chills, headache, nasal congestion, sore throat, cough, chest pain, shortness of breath, palpitations, orthopnea, PND, abdominal pain, nausea, vomiting, diarrhea, constipation, dysuria, hematuria, frequency, back pain, joint pain or swelling, easy bruising or bleeding, skin lesions or rashes. Physical Exam Physical Exam: General: Resting comfortably in his hospital bed. Appears ill but not toxic. Overall looks better than he did yesterday. NAD. HEENT: Head is AT/NC buccal mucosa still dry and tacky Neck: Negative hepatojugular reflex Cardiac: RRR with 1/6 CINDY Lungs: Speaking full sentences on ambient air. Does have end expiratory wheezes predominantly at the base that clears with coughing. Abdomen: Normoactive X4. Soft and nontender in all quadrants. Extremities: No peripheral clubbing cyanosis or edema Neuro: A&O X4 cranial nerves II through XII are grossly intact no focal neuro deficits Skin: No obvious skin lesions or rashes Psych: Appropriate affect pleasant and cooperative Results & Data Results & [facility] ([facility]) Vital Signs (Past 12 Hours) Vital Signs Temp Pulse Pulse Resp BP Pulse Ox 12/09/20 11:29 36.8 C 72 12 135/69 90 12/09/20 08:04 36.6 C 67 14 145/78 H 92 12/09/20 07:23 68 12/09/20 03:57 36.5 C 69 16 127/69 95 Laboratory Results 12/09/20 07:22 12/09/20 07:22 PG Care Time/CCT Total # of Minutes Spent Total Time Spent with Patient: Total time spent is greater than 50% in coordination of care (as documented) at patient's floor/unit and/or counseling patient: C[place] [address] Subseq Hosp Care Lvl 2 Patient Type Established History Expanded Problem Focused Exam Expanded Problem Focused Diagnoses Pneumonia due to COVID-19 virus U07.1; J12.82 Dehydration E86.0 Electrolyte abnormality E87.8 MICK (acute kidney injury) N17.9 Transaminitis R74.01 CAD (coronary artery disease) I25.10 Hypercholesteremia E78.00 Hypertension I10 Psoriasis L40.9 BPH (benign prostatic hyperplasia) N40.0
[2020-12-09] MEDS: dexAMETHasone 6 MG in SYRINGE 0 ML IV SCH (16:02)
[2020-12-09] MEDS ORDERED: guaiFENesin SUGAR FREE 100 MG/5 ML UDC PO PRN (22:53)
[2020-12-10 05:44] LABS: Hematocrit (blood only) 41.1 % (42-52); Hemoglobin 13.9 g/dL (14.0-18.0); Mean Corpuscular Hemoglobin 28.4 pg (25-34); Mean Corpuscular Hgb Conc 33.8 g/dL (32-36); Mean Platelet Volume 9.8 fL (7.4-10.4); Platelet Count 237 K/uL (130-400); RDW Coefficient of Variation 13.7 % (11.5-14.5); RDW Standard Deviation 42.5 fL (36.4-46.3); Red Blood Count 4.89 M/uL (4.7-6.1); White Blood Count 13.73 K/uL (4.8-10.8)
[2020-12-10 06:09] LABS: Albumin Level 2.5 gm/dl (3.4-5.0); Calcium 8.2 mg/dl (8.5-10.1); Creatinine Clr Calc Pharmacy 91.7 ml/min; Est GFR (Non-African American) 69.9 ml/min; Magnesium 2.2 mg/dl (1.8-2.4); Potassium 3.8 mmol/L (3.5-5.1)
[2020-12-10 06:12] LABS: Albumin Globulin Ratio 0.6 (0.9-2); Bilirubin,Total 0.6 mg/dl (0.2-1); Globulin 4.2 gm/dl (2.5-4.0); Total Protein 6.7 gm/dl (6.4-8.2)
[2020-12-10] MEDS: TAMSULOSIN HCL 0.4 MG CAP PO SCH (08:37)
[2020-12-10] MEDS: ASPIRIN 81 MG ECTAB PO SCH (08:37)
[2020-12-10] MEDS: METOPROLOL SUCC 50MG EXT REL TAB PO SCH (08:37)
[2020-12-10] MEDS: DUTASTERIDE: ORDER AWAITING ACTION SCH (08:38)
[2020-12-10] MEDS: ENOXAPARIN INJ 40 MG/0.4 ML SYR SQ SCH (08:38)
[2020-12-10] MEDS: CLOPIDOGREL BISULFATE 75 MG TAB PO SCH (08:38)
[2020-12-10] MEDS: dexAMETHasone 6 MG in SYRINGE 0 ML IV SCH (13:01)
--- NOTE | 2020-12-10 16:38 | Discharge Summary ---
Date of Service December 10, 2020 Admission HPI Per Admitting Provider Mr. Singleton is a 65-year-old white male with an underlying past medical history of CAD s/p PR X2, psoriasis (not on immunosuppressive therapy), HTN, and HLD. Developed flulike symptoms approximately 11 days ago. Include: Fevers, chills, poor appetite, nausea with dry heaves, diarrhea, myalgias. This has since progressed into dizziness, generalized weakness, and shortness of breath. Had a Covid test on 12/03 that came back positive. Was empirically started on azithromycin. Has been monitoring his pulse ox at home and the lowest has been 94%. Came to the ED primarily due to generalized weakness now affecting his ability to ambulate. Claims he has had little to no oral intake in approximately 1 week. Lives with his who also has tested positive for Covid. Patient is unvaccinated. Principal Diagnosis 1. Covid pneumonia 2. Dehydrationresolved 3. Hyponatremia (hypovolemic)resolved 4. AKIsecondary to #2 and resolved 5. Hypokalemiareplaced and resolved 6. Generalized weaknesssecondary to #1 Discharge Exam General: Resting comfortably in his hospital bed. Appears ill but not toxic. Overall looks better than he did yesterday. NAD. HEENT: Head is AT/NC buccal mucosa still dry and tacky Neck: Negative hepatojugular reflex Cardiac: RRR with 1/6 CINDY Lungs: Speaking full sentences on ambient air. Does have end expiratory wheezes predominantly at the base that clears with coughing. Abdomen: Normoactive X4. Soft and nontender in all quadrants. Extremities: No peripheral clubbing cyanosis or edema Neuro: A&O X4 cranial nerves II through XII are grossly intact no focal neuro deficits Skin: No obvious skin lesions or rashes Psych: Appropriate affect pleasant and cooperative Discharge Data Allergies Allergy/AdvReac Type Severity Reaction Status Date / Time No Known Allergies Allergy Unknown Verified 12/08/20 16:17 Consultations 12/08/20 14:39 ED Decision to Admit Stat Procedures Performed 12/08/2020 --CXR: Increased interstitial lung markings consistent with Covid PNA Hospital Course (1) Pneumonia due to COVID-19 virus: -Although patient does have evidence of opacities consistent with Covid on x-ray, fortunately he is not requiring any supplemental oxygen at rest -Does not meet requirements for remdesivir (not requiring supplemental oxygen and is outside of the window from symptom onset) -Decadron given -On 12/10, patient's pulse ox was between 9398% on room air. He is day 13-14 since symptom onset. I feel that he is stable for discharge to home as there is not much more I can provide him in the hospital. -A two-step pulse oximetry was done showing no need for oxygen at rest. Patient does require 1 L of oxygen when sleeping and 3 L with ambulation to maintain a pulse ox of 88 to 90% -We will discharge to home today with supplemental oxygen to use when sleeping and with ambulation. Lengthy discussion with patient, his son, and his regarding realistic expectations over the upcoming months (2) Dehydration: -Has since resolved- with gentle IV hydration -Patient still appears to be slightly volume contracted however we will hold off on any added IV hydration (given risk for volume overload given active Covid). -I have encouraged him to push his fluids. -His diuretic (Dyazide) was held -Would recommend continued holding this medication until his oral intake is back to baseline (3) Electrolyte abnormality: -Hyponatremia and hypokalemia--> likely secondary to #2 -All likely hypovolemic -Hypokalemia replaced and resolved -Hyponatremia resolved with gentle IV hydration (4) MICK (acute kidney injury): -Likely secondary to #2 -Resolved with gentle IV hydration. As reported above, no continued IV hydration but encouraged patient to push oral intake -Continue to hold Dyazide for now (5) Transaminitis: -Exact etiology unclear -Perhaps multifactorial (Patient on chronic statin therapy, was using Tylenol as an antipyretic, and could perhaps be secondary to Covid infection) -This is not a significant elevation in downtrending -Statin held while in house but okay to resume at this time (6) CAD (coronary artery disease): -Continue dual antiplatelet therapy -Statin held while in house -Continue beta-blockade (7) Hypercholesteremia: -Statin held as outlined above (8) Hypertension: -Continue beta-blockade. Hold Dyazide as outlined above (9) Psoriasis: -Patient takes topical medication. No immunosuppressive medication on board (10) BPH (benign prostatic hyperplasia): -Continue Flomax and Avodart as prior to hospitalization Discharge recommendations: 1. Recommend follow-up CXR4 weeks 2. Recommend repeat two-step pulse oximetry in 3 to 4 weeks to determine continued need for supplemental oxygen 3. Recommend consideration of Covid vaccine in 90 days Total Time Total Time Spent Total Time Spent (In Minutes): 60 min including time spent with patient, calling his , discussion with respiratory therapy and nursing staff and documentation Discharge Plan Discharge Items Patient Disposition: Home - Self-Care Reason For Visit: +COVID TEST,DIZZY,SOB Discharge Diagnosis: 1. Covid Pneumonia (requiring oxygen only when walking/sleeping) 2. Acute dehydration- resolved 3. Hyponatremia (low sodium)-- likely d/t #2 and resolved 4. Hypokalemia (low potassium)-- likely d/t #2 and resolved Activity: As commented below Activity Comment: as tolerated Non-emergency contact: Primary Care Provider Call non-emergency contact if: you have any medication questions and your symptoms worsen Follow-up/Referrals: Martín Capellan III, MD [Primary Care Provider] - (PLEASE CALL YOUR PRIMARY CARE PROVIDER TO SCHEDULE A FOLLOW-UP DISCHARGE APPOINTMENT WITHIN 7-10 DAYS.) Diet: Regular Addtl Attending Provider Instructions: -You were hospitalized with dehydration and weakness secondary to Covid -You were also found to have infiltrates consistent with pneumonia (due to Covid) -Fortunately, you are not requiring any oxygen at rest. You are requiring minimal amounts (1 L when you sleep and 2 to 3 L when walking) -You did not qualify/meet requirements for remdesivir (as discussed, does not treat Covid but rather decreases viral replication but needs to be given earlier in the course of symptoms) -You are being discharged with several days of Decadron (to help with inflammation in the lungs and prevent your immune system from "going into overdrive" and making things worse) -You likely will not need oxygen long-term. As your body continues to heal, your oxygen requirements will likely continue to decrease. Everyone is different. Some people need oxygen for a week, others its several weeks to months. -I would advise that you hold your Dyazide (BP medication) until your appetite is back to normal) as this will dehydrate you -make sure that you continue to EAT AND DRINK -You should follow-up with your family doctor in approximately 2 weeks -You will need to have a repeat chest x-ray in approximately 4 weeks to ensure continued healing of your lungs -Understand that you will feel weak and tired for weeks as you continue to fight this virus. This is not your typical virus that runs its course in 7 to 10 days but may take up to 3 months for you to feel back to your normal self -You should continue to try to stay active (sit up at the chair to eat your meals, walk to and from the bathroom) to exercise those lungs. Sleep on your belly if able. You will be easily winded and easily fatigued. This is to be expected -Return to the ED for any new or worsening symptoms Pending Studies at Discharge: No Stand-Alone Forms: My [facility] Medications and DC Order Prescriptions: New dexamethasone [Decadron] 6 mg tablet 6 mg PO DAILY Qty: 7 RF: 0 Continued atorvastatin 80 mg tablet 80 mg PO HS Qty: 90 RF: 3 tamsulosin 0.4 mg capsule 0.4 mg PO DAILY Qty: 90 RF: 3 dutasteride 0.5 mg capsule 0.5 mg PO DAILY Qty: 90 RF: 3 metoprolol succinate 50 mg tablet extended release 24 hr 50 mg PO QAM Qty: 90 RF: 3 clopidogrel 75 mg tablet 75 mg PO QAM Qty: 90 RF: 3 betamethasone dipropionate 0.05 % ointment 1 applic topical BID Qty: 135 RF: 0 triamcinolone acetonide 0.1 % cream 1 applic TOPICAL BID PRN (Reason: Rash) Qty: 80 RF: 0 Glucosamine Chondroitin 550-30-1 mg Capsule 1 cap PO BID RF: 0 nitroglycerin [Nitrostat] 0.4 mg Tablet, Sublingual 0.4 mg Sublingual UD PRN (Reason: Chest Pain) RF: 0 aspirin 81 mg Tablet,Delayed Release (Dr/Ec) 81 mg PO DAILY RF: 0 Discontinued triamterene-hydrochlorothiazid 37.5-25 mg capsule 1 cap PO QAM Qty: 90 RF: 3 azithromycin 250 mg tablet See Rx Instructions PO .COMPLEX Qty: 6 RF: 0 Discharge Orders: Discharge Order (Routine); Ordered 12/10/20 Ordered By: Sharla Berkowitz Admission Data Admit Date/Time: 12/08/20 16:10 Attending Provider: Tarun Kumari Admit Provider: Christopher Bhakta Primary Care Provider: Martín Capellan III Other Providers: Christopher Bhakta Other Interventions: Discharge Summary Assessment (RN) Last Done: 12/10/20 12:16 Supervising Physician Co-Signing Physician Notes Patient seen and examined on the day of discharge. I agree with the discharge summary by Sharla CHRISTIAN. I have reviewed the chart including labs, imaging and plans for discharge. patient feeling much better, stable on room air at rest, needs 1L when sleeping, 3L on exertion, home oxygen arranged eating and drinking much better, taste/smell back, no fever, minimal cough, better strength - COVID 19 pneumonia, acute hypoxic respiratory failure responded well to dexamethasone, IV fluids discharge home to finish course of dexamethasone stay well nourished, well hydrated follow up with PCP Coding Level of Care Code Established Pt D/C DAY MANAGEMENT >30 MINS Patient Type Established Diagnoses Pneumonia due to COVID-19 virus U07.1; J12.82 Dehydration E86.0 Electrolyte abnormality E87.8 MICK (acute kidney injury) N17.9 Transaminitis R74.01 CAD (coronary artery disease) I25.10 Hypercholesteremia E78.00 Hypertension I10 Psoriasis L40.9 BPH (benign prostatic hyperplasia) N40.0 Time Spent (min) 60
== END 2020-12-10 15:05 | disposition home or self-care (01) ==
LOC: ED 11:40 → INTOOBSV 16:10 → SUATTDRO 16:10 → 2N 16:10

== ENCOUNTER 2023-02-18 09:21 | Observation (INO) ==
[2023-02-18] MEDS ORDERED: SODIUM CHLORIDE 0.9% 500 ML IV SCH (09:45)
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
[2023-02-18] MEDS ORDERED: SODIUM CHLORIDE 0.9% 250 ML IV ONE (09:59)
[2023-02-18 10:01] LABS: Basophils # (auto) 0.06 K/uL (0.00-0.20); Basophils % (auto) 0.7 %; Eosinophils # (auto) 0.12 K/uL (0.00-0.50); Eosinophils % (auto) 1.4 %; Hematocrit (blood only) 41.9 % (42.0-52.0); Hemoglobin 13.5 g/dl (14.0-18.0); Immature Granulocytes # (auto) 0.03 K/uL (0.01-0.20); Immature Granulocytes % (auto) 0.4 %; Lymphocytes # (auto) 1.28 K/uL (1.20-3.40); Lymphocytes % (auto) 15.4 %; Mean Corpuscular Hemoglobin 26.8 pg (25.0-34.0); Mean Corpuscular Hgb Conc 32.2 g/dL (32.0-36.0); Mean Corpuscular Volume 83.1 fL (80.0-100.0); Mean Platelet Volume 9.8 fL (9.4-12.4); Monocytes # (auto) 0.77 K/uL (0.11-0.59); Monocytes % (auto) 9.3 %; Neutrophils # (auto) 6.06 K/uL (1.40-6.50); Neutrophils % (auto) 72.8 %; Platelet Count 209 K/uL (130-400); RDW Coefficient of Variation 15.9 % (11.5-14.5); RDW Standard Deviation 47.8 fL (36.4-46.3); Red Blood Count 5.04 M/uL (4.70-6.10); White Blood Count 8.32 K/ul (4.8-10.8)
--- NOTE | 2023-02-18 10:08 | XRay Report ---
XR chest 1V portable CLINICAL HISTORY: Dizzy. COMPARISON STUDY: Chest CT December 19, 2022. Chest CT December 24, 2022. FINDINGS: Lung volumes are normal. Lungs are clear. There is no pneumothorax or pleural effusion. Car diomegaly is unchanged. Mediastinal contours are normal. There is no evidence for pulmonary edema. IMPRESSION: No acute cardiopulmonary findings. No change in appearance of the chest. ACT 112: Negative or not required by law. Electronically signed by: Riki Ugalde M.D. 02/18/2023 10:07 AM
[2023-02-18 10:16] LABS: Albumin Globulin Ratio 1.2 (0.9-2); Albumin Level 4.1 gm/dl (3.4-5.0); Bilirubin,Total 1.1 mg/dl (0.2-1.0); Calcium 9.8 mg/dl (8.6-10.3); Creatinine Clr Calc Pharmacy 55.9 ml/min; Est GFR (African American) 49.8 ml/min; Globulin 3.3 gm/dl (2.5-4.0); Magnesium 1.9 mg/dl (1.7-2.4); Total Protein 7.4 gm/dl (6.0-8.3)
[2023-02-18 10:21] LABS: Troponin I High Sensitivity 24.9 pg/ml (0-20)
[2023-02-18 10:31] LABS: Thyroid Stimulating Hormone 3.283 uIu/ml (0.300-4.500)
[2023-02-18 10:39] LABS: INR 0.9 (0.9-1.1); Partial Thromboplastin Ratio 0.9; Partial Thromboplastin Time 25 Seconds (21-31); Prothrombin Time 10.3 Seconds (9.0-12.0)
[2023-02-18 12:05] LABS: Appearance Urine Clear (Clear); Bilirubin Urine Negative (Negative); Blood Urine Negative (Negative); Color Urine Yellow; Glucose Urine UA Negative (Negative); Ketones Urine Negative (Negative); Leukocyte Esterase Urine Negative (Negative); Nitrite Urine Negative (Negative); Protein Urine Negative (Negative); Urobilinogen Urine Negative (Negative)
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
[2023-02-18] MEDS ORDERED: ACETAMINOPHEN 325 MG TAB PO PRN (14:50)
[2023-02-18] MEDS ORDERED: TRIAMCINOLONE ACET 0.1% CR 15 GM TUBE TOP PRN (14:50)
[2023-02-18] MEDS ORDERED: NITROGLYCERIN SL 0.4 MG/TAB TAB SL PRN (14:50)
[2023-02-18] MEDS: METOPROLOL SUCC 50MG EXT REL TAB PO SCH (16:21)
[2023-02-18] MEDS: ASPIRIN 81 MG ECTAB PO SCH (16:22)
[2023-02-18] MEDS: SPIRONOLACTONE 25 MG TAB PO SCH (16:22)
[2023-02-18] MEDS: FINASTERIDE 5 MG TAB PO SCH (16:22)
--- NOTE | 2023-02-18 16:59 | XCELERA ---
[id number] [id number]
[2023-02-18] MEDS: TICAGRELOR 90 MG TAB PO SCH ×2 (17:26→20:47)
[2023-02-18] MEDS: PANTOprazole 40 MG TAB PO SCH ×2 (17:26→20:47)
[2023-02-18] MEDS ORDERED: ATORVASTATIN 40 MG TAB PO SCH (21:00)
[2023-02-18] MEDS ORDERED: NORTRIPTYLINE HCL 25 MG CAP PO SCH (21:00)
[2023-02-18] MEDS ORDERED: BETAMETHASONE DIPROPIONATE 0.05% TOP SCH (21:00)
--- NOTE | 2023-02-19 06:45 | Electrocardiogram Report ---
Test Reason : Blood Pressure : / mmHG Vent. Rate : 070 BPM Atrial Rate : 070 BPM P-R Int : 170 ms QRS Dur : 104 ms QT Int : 420 ms P-R-T Axes : 043 -30 130 degrees QTc Int : 453 ms Normal sinus rhythm Left axis deviation Lateral infarct (cited on or before 19-DEC-2022) Inferior infarct (cited on or before 19-DEC-2022) Abnormal ECG When compared with ECG of 19-DEC-2022 20:45, ST elevation now present in Anterior leads Nonspecific T wave abnormality now evident in Inferior leads Confirmed by Aftab Keita ([id number]) on 02/19/2023 6:44:31 AM Referred By: REFERRED SELF Confirmed By:Aftab Keita
[2023-02-19 07:57] LABS: Basophils # (auto) 0.04 K/uL (0.00-0.20); Basophils % (auto) 0.6 %; Eosinophils # (auto) 0.17 K/uL (0.00-0.50); Eosinophils % (auto) 2.6 %; Hematocrit (blood only) 38.9 % (42.0-52.0); Hemoglobin 12.7 g/dl (14.0-18.0); Immature Granulocytes # (auto) 0.02 K/uL (0.01-0.20); Immature Granulocytes % (auto) 0.3 %; Lymphocytes # (auto) 1.31 K/uL (1.20-3.40); Mean Corpuscular Hemoglobin 26.8 pg (25.0-34.0); Mean Corpuscular Hgb Conc 32.6 g/dL (32.0-36.0); Mean Corpuscular Volume 82.2 fL (80.0-100.0); Mean Platelet Volume 10.1 fL (9.4-12.4); Monocytes # (auto) 0.59 K/uL (0.11-0.59); Neutrophils # (auto) 4.42 K/uL (1.40-6.50); Neutrophils % (auto) 67.5 %; Platelet Count 181 K/uL (130-400); RDW Coefficient of Variation 15.9 % (11.5-14.5); RDW Standard Deviation 47.9 fL (36.4-46.3); Red Blood Count 4.73 M/uL (4.70-6.10); White Blood Count 6.55 K/ul (4.8-10.8)
--- NOTE | 2023-02-19 08:09 | Hospitalist Progress Note ---
Date of Service February 19, 2023 Assessment & Plan (1) Orthostatic hypotension: Plan: Patient experienced an episode of acute dizziness, and back/shoulder tightness, while on the treadmill at cardiac rehab on the morning of 02/18 Hx of Inferior wall STEMI on 12/19/2022 s/p PCI with CIARA Continue aspirin, atorvastatin, Brilinta Patient has been going to cardiac rehab 3 times per week EKG revealed NSR at 70 bpm; QTc 453 Elevrted troponin level 24.9, repeat 25.6 Repeat echo EF 45-50% inferior lateral severe hypokinesis-> compared to previous LV function improved (2) Weakness: Plan: CXR revealed NAF EKG revealed NSR at 70 bpm; QTc 453 Patient notes this has been ongoing since his TN in November And should be noted that brain MRI on 12/22/2022 noted 3 tiny foci of acute ischemic injury within the right parietal lobe PT/OT consulted (3) Hypertension: Plan: BP 120/73 at time of admission Continue metoprolol Hold lisinopril (4) BPH (benign prostatic hyperplasia): Plan: Continue dutasteride Hold tamsulosin; patient reports that it is currently being held due to concerns of orthostatic hypotension (5) Psoriasis: Plan: Continue betamethasone ointment as needed for lower extremity psoriasis (6) Cervical pain: Plan: Continue nortriptyline Plan Full code VTE PPx: SCDs Admission and Anticipated Discharge Date Admission Date: February 18, 2023 Results & Data Results & Data Vital Signs (Past 12 Hours) Vital Signs Temp Pulse Pulse Resp BP Pulse Ox O2 Del Method 02/19/23 07:29 97.7 F 64 18 129/69 95 Room Air 02/19/23 05:11 97.5 F L 49 L 20 115/61 97 Room Air 02/19/23 01:01 65 02/19/23 01:00 97.7 F 69 15 131/61 93 Room Air PG Care Time/CCT Total # of Minutes Spent Total Time Spent with Patient: Total time spent is greater than 50% in coordination of care (as documented) at patient's floor/unit and/or counseling patient: Coding Diagnoses Orthostatic hypotension I95.1 Weakness R53.1 Hypertension I10 BPH (benign prostatic hyperplasia) N40.0 Psoriasis L40.9 Cervical pain M54.2
[2023-02-19 08:22] LABS: BUN Creatinine Ratio 14.9 (10-20); Calcium 9.2 mg/dl (8.6-10.3); Creatinine Clr Calc Pharmacy 66.5 ml/min; Est GFR (African American) 62.2 ml/min; Est GFR (Non-African American) 53.7 ml/min; Potassium 3.7 mmol/L (3.5-5.1)
[2023-02-19] MEDS: SPIRONOLACTONE 25 MG TAB PO SCH (09:04)
[2023-02-19] MEDS: PANTOprazole 40 MG TAB PO SCH (09:04)
[2023-02-19] MEDS: TICAGRELOR 90 MG TAB PO SCH (09:04)
[2023-02-19] MEDS: METOPROLOL SUCC 50MG EXT REL TAB PO SCH (09:05)
[2023-02-19] MEDS: FINASTERIDE 5 MG TAB PO SCH (09:05)
[2023-02-19] MEDS: ASPIRIN 81 MG ECTAB PO SCH (09:56)
--- NOTE | 2023-02-19 16:26 | Discharge Summary ---
Date of Service February 19, 2023 Admission HPI Per Admitting Provider Issa is a pleasant 67-year-old male with PMH of STEMI on 12/19/2022 s/p PCI with CIARA, CAD, BPH, HTN, LVH, CALLIE, and acute systolic CHF. He presented from cardiac rehab where he began to feel lightheaded while on the treadmill. He has had similar episodes in the past at cardiac rehab. Patient is s/p inferior wall HI on 12/19/22 (on aspirin daily and Brilinta twice daily). He has been going to cardiac rehab 3 times per week. On 02/18 he reports he was on the treadmill for around 40 minutes, then hit the stop button when he started to feel dizzy; he felt like he was going to pass out, but reports that he did not faint. There was no chest pain when this was happening, but he felt a tightness in his left shoulder and back, as well as dyspnea. He was extremely lightheaded. 30 minutes after the incident, he had orthostatics taken and reported that his blood pressure dropped to around "72/50" when standing. He has not taken any of his medications this morning. He reports that he has been trying to stay hydrated, but has had ongoing dizziness when standing. Patient's vitals are stable at time of admission. ED course: NSS 250 mL IV ROS: Patient endorses lightheaded, CRAWFORD, chest discomfort, constipation, urinary straining, Patient denies fever, chills, nightsweats, VAN, chest pain, SOB at rest, abdominal pain, N/V/D, burning with urination, or numbness/tingling going down legs or arms. No PMHx of DVT/PE Principal Diagnosis Symptomatic orthostatic hypotension from diuretic use Discharge Exam Reviewed orthostatic blood pressures with nursing felt not to be significant change Card exam is regular there is no murmurs lungs are clear without wheezes or crackles neurologically is awake alert appropriate Discharge Data Allergies Allergy/AdvReac Type Severity Reaction Status Date / Time No Known Allergies Allergy Unknown Verified 01/13/23 13:16 Consultations 02/18/23 11:50 ED Decision to Admit Stat Hospital Course (1) Orthostatic hypotension: Patient experienced an episode of acute dizziness, and back/shoulder tightness, while on the treadmill at cardiac rehab on the morning of 02/18 Hx of Inferior wall STEMI on 12/19/2022 s/p PCI with CIARA Continue aspirin, atorvastatin, Brilinta Patient has been going to cardiac rehab 3 times per week patient states felt poorly after the first rehab session. EKG revealed NSR at 70 bpm; QTc 453 Elevrted troponin level 24.9, repeat 25.6 Repeat echo EF 45-50% inferior lateral severe hypokinesis-> compared to previous LV function improved Recently started on spironolactone January 13 in cardiology clinic. Will discontinue spironolactone and diuretic therapy at this time as patient states he is follow-up with Dr. Baugh February 22 with his in 3 days. Encouraged the patient to avoid salty foods and excessive fluid intake (2) Weakness: CXR revealed NAF EKG revealed NSR at 70 bpm; QTc 453 Patient notes this has been ongoing since his HI in November and worsened after initiation of cardiac rehab And should be noted that brain MRI on 12/22/2022 noted 3 tiny foci of acute ischemic injury within the right parietal lobe Patient able to go home (3) Hypertension: BP 120/73 at time of admission Continue metoprolol Will resume lisinopril but will discontinue spironolactone and furosemide (4) BPH (benign prostatic hyperplasia): Continue dutasteride Hold tamsulosin; patient reports that it is currently being held due to concerns of orthostatic hypotension (5) Psoriasis: Continue betamethasone ointment as needed for lower extremity psoriasis (6) Cervical pain: Continue nortriptyline Plan Full code Total Time Total Time Spent Total Time Spent (In Minutes): It required greater than 30 minutes to prepare this patient for discharge. Discharge Plan Discharge Items Patient Disposition: Home - Self-Care Reason For Visit: ORTHOSTATIC HYPOTENSION, DIZZINESS, RECENT HI Discharge Diagnosis: low blood pressure, suspected to be from cardiac medications adjusted medications to newly improved heart function Activity: Per Instructions section Activity Comment: no intentional exercise until after you see Dr Baugh Non-emergency contact: Primary Care Provider and Pediatric Dental Assistant Call non-emergency contact if: your symptoms worsen Follow-up/Referrals: Aníbal Corona, [Primary Care Provider] - Diet: Heart Healthy Addtl Attending Provider Instructions: some of you symptoms maybe from medications causing relative dehydration as you may not need as much diuretic medications as your latest echocardiogram shows your heart function has improved. we are stopping your spironolactone( this was added jan 13 2023)and your furosemide. Please discuss these further with Dr Baugh at your upcomming apointment please be aware to reduce your salt intake over the holidays and take care when changing position from lying to sitting and sitting to standing, once you change position pause for a few seconds to allow your bodies circulation system to adapt to the new position Pending Studies at Discharge: No Stand-Alone Forms: My [facility], Smoking Cessation Medications and DC Order Prescriptions: Continued atorvastatin 80 mg tablet 80 mg PO HS Qty: 90 3RF lisinopril [Zestril] 5 mg tablet 5 mg PO QAM Qty: 90 3RF metoprolol succinate 50 mg tablet extended release 24 hr 50 mg PO DAILY Qty: 90 3RF betamethasone dipropionate 0.05 % ointment 1 applic topical BID Qty: 135 0RF Rx Instructions: Apply to areas of the extremities twice daily x 2 weeks as needed for flaring. triamcinolone acetonide 0.1 % cream 1 applic TOPICAL UD PRN (Reason: Skin Irritation) Rx Instructions: 1 applic topically to areas of the groin twice weekly as directed. nortriptyline 25 mg capsule 25 mg PO HS dutasteride 0.5 mg capsule 0.5 mg PO QAM Brilinta 90 mg Tablet 90 mg PO BID Qty: 60 11RF aspirin 81 mg Tablet,Delayed Release (Dr/Ec) 81 mg PO QAM Qty: 90 3RF Rx Instructions: purchase [id number] pantoprazole 40 mg Tablet,Delayed Release (Dr/Ec) 40 mg PO BID Qty: 60 2RF nitroglycerin [Nitrostat] 0.4 mg Tablet, Sublingual 0.4 mg Sublingual UD PRN (Reason: chest pain) Qty: 1 0RF Rx Instructions: 1 tab SL [id number] [id number] chest pain, max 3 doses in 15 minutes. Discontinued furosemide [Lasix] 20 mg tablet 20 mg PO QAM PRN (Reason: weight gain/swelling) Qty: 90 3RF spironolactone 25 mg tablet 25 mg PO DAILY Qty: 90 3RF tamsulosin 0.4 mg capsule 0.4 mg PO QAM Hold Instructions: hold due to dizziness Discharge Orders: Discharge Order (Routine); Ordered 02/19/23 Ordered By: Quoc Gay Admission Data Admit Date/Time: 02/18/23 12:49 Attending Provider: Quoc Gay Admit Provider: Quoc Gay Primary Care Provider: Aníbal Corona Other Providers: Norm Gleason Other Interventions: Discharge Summary Assessment (RN) Last Done: 02/19/23 12:52 Coding Level of Care Code 39827 INP/OBS DISCH >30 MIN Diagnoses Orthostatic hypotension I95.1 Weakness R53.1 Hypertension I10 BPH (benign prostatic hyperplasia) N40.0 Psoriasis L40.9 Cervical pain M54.2
[2023-02-20] MEDS ORDERED: lisinopril 5 MG TAB PO SCH (09:00)
== END 2023-02-19 13:45 | disposition home or self-care (01) ==
LOC: ED 09:21 → 2N 09:21

== ENCOUNTER 2024-09-14 07:12 | Observation (INO) ==
--- NOTE | 2024-08-14 09:56 | PAT Medication Instructions ---
Medication Instructions Date of Service August 14, 2024 Home Medications Medication Instructions Recorded atorvastatin 80 mg tablet 80 mg PO HS #90 tabs 03/26/24 clobetasol 0.05 % topical ointment 1 applic topical BID #60 grams 08/01/24 atorvastatin 80 mg tablet 80 mg PO HS amoxicillin 500 mg tablet 2,000 mg PO .COMPLEX calcipotriene 0.005 % topical cream 1 applic topical .COMPLEX clobetasol 0.05 % topical ointment 1 applic topical BID aspirin 81 mg tablet,delayed release 81 mg PO QAM metoprolol succinate 50 mg tablet,extended release 24 hr (Toprol XL) 50 mg PO QAM Continue as directed amoxicillin 500 mg tablet 2,000 mg PO .COMPLEX ASK your prescriber and surgeon aspirin 81 mg tablet,delayed release 81 mg PO QAM STOP taking 24 hours before surgery calcipotriene 0.005 % topical cream 1 applic topical .COMPLEX clobetasol 0.05 % topical ointment 1 applic topical BID Take morning of surgery With a small sip of water, OTHERWISE NOTHING TO EAT OR DRINK AFTER MIDNIGHT: metoprolol succinate 50 mg tablet,extended release 24 hr (Toprol XL) 50 mg PO QAM Take evening before surgery atorvastatin 80 mg tablet 80 mg PO HS Other Notes If you have any questions please call us at [phone] or [phone] or [phone] or [phone]
--- NOTE | 2024-08-20 08:52 | Anesthesiology Consultation ---
Date of Service August 20, 2024 Assessment & Plan (1) Encounter for pre-operative examination: - Infectious disease screening: Per assessment on 08/20/24- No known recent infectious disease contacts or current infectious disease symptoms. - Outpatient joint assessment: Pt currently scheduled for inpatient pathway. If surgeon requests review for outpatient joint pathway, patient is not recommended candidate for outpatient joint program from anesthesia standpoint based on available information. - ASA instructions: Patient continue ASA perioperatively. - Patient concern: Patient reports concern with upcoming surgery/anesthesia due [id number] (not blood relative) that had awareness with surgery in the past >"heard hammering." - Hx CABG x4 03/2024: Hx CAD s/p multiple cardiac stents and then more recently CABG x4 03/2024. Patient follows with [facility] cardio for general cardiology management and had CABG performed through [facility]; patient seen by both [facility] cardio and [facility] surgery since CABG performed. Case reviewed with Dr. Tiwari. He requests we obtain clearance from [facility] (He does not need [facility] cardio comment additionally). Preop testing forwarded to Cardiac surgery. > Cardiac surgery response 08/21/24: "Dr. Patterson reviewed at your request as he was the surgeon. He does not see the need for any further testing. OK to proceed." Chart Review Chart Review: Acceptable Risk for Surgery (pending evaluation DOS) and Patient seen in Pre Admission Testing Teaching & Discussion Pre-Anesthesia Teaching/Discussion Notes: Instructed NPO after midnight before surgery,except medications with 15 cc of water. Medication instructions provided according to the PAT guidelines. History Surgery Operation Date: 09/14/24 07:00 Proposed Procedures p Left Total Knee Arthroplasty - Norm Cruz DO Height/Weight Height: 6 ft Weight: 118.4 kg Allergies Allergy/AdvReac Type Severity Reaction Status Date / Time No Known Allergies Allergy Unknown Verified 08/09/24 14:35 Medications Home Medications Medication Instructions Recorded Confirmed Last Taken atorvastatin 80 mg tablet 80 mg PO HS #90 tabs 03/26/24 08/09/24 Unknown amoxicillin 500 mg tablet 2,000 mg PO .COMPLEX 05/04/24 08/09/24 Unknown calcipotriene 0.005 % topical cream 1 applic topical .COMPLEX 05/04/24 08/09/24 Unknown clobetasol 0.05 % topical ointment 1 applic topical BID #60 grams 08/01/24 08/09/24 Unknown aspirin 81 mg tablet,delayed 81 mg PO QAM 08/09/24 08/09/24 Unknown release metoprolol succinate 50 mg 50 mg PO QAM 08/09/24 08/09/24 Unknown tablet,extended release 24 hr (Toprol XL) Past Medical History Medical History (Updated 08/20/24 @ 09:43 by Roxanne Montenegro) Anemia Chronic Arthralgia of multiple sites 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 3 day admission, Covid PNA > resolved History of melanoma History of psoriatic arthritis History of ST elevation myocardial infarction (STEMI) STEMI History of stroke (11/2022) "Mild one during cardiac cath" > mild balance issues Hx of psoriasis Hyperlipidemia Hypertension Iron deficiency anemia Ischemic cardiomyopathy LVH (left ventricular hypertrophy) Obesity Orthostatic hypotension Osteoarthritis Postoperative atrial fibrillation s/p CABG 03/2024 Was on Eliquis x 30 days ([facility] [place] deferred to [facility] cardio regarding AF AC management; AC/Eliquis okay to discontinue per [facility] cardio) Prediabetes Per records, patient denies Rotator cuff tear, left Vertigo Exercise / Class Metabolic Activity III < 4 Walking/Shop/Light housework (uses cane) Past Family History Family History Brother Family history of diabetes mellitus Grandmother Family history of diabetes mellitus Father Family hx of colon cancer Prostate cancer Mother Myocardial infarction Hx of CABG Hypertension Other No family history of adverse response to anesthesia Past Surgical History Surgical History (Updated 08/20/24 @ 09:43 by Roxanne Montenegro) History of anesthesia reaction Occasional slow to wake up History of arthroscopy right knee meniscus History of cardiac cath 01/2024- no stents 11/2022- stents x3 2005- 2005- RCA CIARA x2, mLAD CIARA November 2005; pLAD CIARA January 2006 History of colonoscopy History of herniorrhaphy x1 Hx of arthroscopy of shoulder Right shoulder w/RCT repair Hx of CABG CABG x4 (04/27/24) Hx of cataract extraction R/L Hx of melanoma excision 10 hour surgery to remove Past Anesthesia History No Family Hx of Anesthesia Complications and Other (Slow to wake) History of PONV No Hx of PONV and No Hx of Motion Sickness Social History Smoking Status: Never smoker Do You Dip or Chew Tobacco: No Hx Alcohol Use: No Hx Substance Use: No substance use type: does not use Review of Systems Rare palpitations. Patient denies chest pain, shortness of breath, fever, chills, cough, wheezing. Physical Exam Vital Signs BP 143/83 P 71 TEMP 98.0 SP02 95%RA RESP 18 Physical Full cervical extension range of motion. Full TMJ range of motion. TMD > 3.5 finger breaths Mallampati Score II Dentition: poor dentition, several missing teeth, several broken including upper front, denies loose teeth Lungs: clear throughout to auscultation Cardiac: regular rate and rhythm, III/ systolic murmur Spine: normal Carotid arteries: negative bruit Extremities: no LE edema Lab Results Anesthesia Preop Results Results Anesthesia Widget: WBC 8.98 K/ul (4.8-10.8) 08/20/24 Hgb 10.8 g/dl (14.0-18.0) L 08/20/24 Hct 35.8 % (42.0-52.0) L 08/20/24 Plt 354 K/uL (130-400) 08/20/24 Na 138 mmol/L (136-145) 08/20/24 K 4.5 mmol/L (3.5-5.1) 08/20/24 Cl 106 mmol/L (98-107) 08/20/24 CO2 26 mmol/L (21-32) 08/20/24 BUN 18 mg/dl (6-23) 08/20/24 Creat 1.07 mg/dl (0.6-1.4) 08/20/24 Glucose Level 93 mg/dl (70-99(Fasting)) 08/20/24 PT 10.5 Seconds (9.0-12.0) 08/20/24 PTT 26 Seconds (21-31) 08/20/24 INR 1.0 (0.9-1.1) 08/20/24 Blood Type A Positive 08/20/24 Antibody Screen NEGATIVE 08/20/24 Testing Electrocardiogram Date: 08/20/24 NSR at 69bpm. Inferior infarct (cited on or before 12/19/2022). Chest X-Ray Date: 08/20/24 FINDINGS: There is interval CABG. There is moderate cardiomegaly with mild pulmonary vascular congestion. Lungs are mildly hyperexpanded. No consolidation or pleural effusion. No pneumothorax. IMPRESSION: Mild CHF. No other acute findings. Echocardiogram Date: 04/24/24 LVEF 45-50%. HK basal and mid-pap inferior and inferolateral segments. No thrombus seen in MYLENE. LVD. Mildly reduced LV systolic function. Mild MR. Mild posterior leaflet restriction. 2 jets. Postop conclusion: Unchanged LV/RV/mild MR/trace TR. Stress Test Date: 12/29/23 Abnormal exercise stress echo. Overall LV function fails to augment with exercise. Mid to apical anteriolateral hypokinesis worsens with exercise. Resting inferior/inferior lateral wall motion abnormality improves with exercise. Exercise stress ECG nondiagnostic due to artifact. 112% MPHR. 5.3 METS. Mild LVD. Mild concentric LVH. Rest EF 45%. Inferior/inferior lateral hypokinesis. Moderate mid to apical anteriolateral hypokinesis. Moderate MR. Grade 1 diastolic dysfunction. Cardiac Catheterization Date: 02/02/24 Summary: 1. Multivessel coronary artery [id number]% ostial, 40% proximal ISR and 90% earlydistal LAD disease. Medium jailed D2 70% ostial. 100% chronic mid circumflex. Left PLB/distal circumflex fills retrograde via right to left collaterals. Mid RCA stent 30% ISR, distal RCA stent patent with 40% stenosis at distal aspect 2. Normal intracardiac filling pressure Recommendations: With complex diffuse LAD disease, jailed diagonal and LCx MOLDER WAX BALL recommend referral for CABG evaluation. Continue ASCVD risk factor modification
--- NOTE | 2024-09-12 07:52 | History & Physical Report ---
Date of Service September 12, 2024 Assessment & Plan (1) Osteoarthritis of left knee: We will proceed with a left total knee arthroplasty. Postoperatively, he will be started on aspirin for DVT prophylaxis and kept overnight in the hospital for postop medical management. He plans to use energy physical therapy at discharge. History of Present Illness Chief Complaint: Osteoarthritis of the left knee. Primary Care Provider: Aníbal Corona DO Issa is a pleasant 68-year-old male who has been dealing with chronic increasing left knee pain. I have been giving him injections for years. Unfortunately, his knee pain is getting worse. It is all medial-sided knee pain. He is now wearing a knee brace and ambulating with a cane. Unfortunately, he had a quadruple bypass surgery in March. He has actually done very well with that. He is having trouble doing some of the cardiac rehab because of his knee pain. After failing conservative treatment, and after full medical clearance, he has elected to proceed with a left total knee arthroplasty. Allergies Allergy/AdvReac Type Severity Reaction Status Date / Time No Known Allergies Allergy Unknown Verified 08/09/24 14:35 Home Medications Medication Instructions Recorded Confirmed Type atorvastatin 80 mg tablet 80 mg PO HS #90 tabs 03/26/24 08/09/24 Rx amoxicillin 500 mg tablet 2,000 mg PO .COMPLEX 05/04/24 08/09/24 History calcipotriene 0.005 % topical cream 1 applic topical .COMPLEX 05/04/24 08/09/24 History clobetasol 0.05 % topical ointment 1 applic topical BID #60 grams 08/01/24 08/09/24 Rx aspirin 81 mg tablet,delayed 81 mg PO QAM 08/09/24 08/09/24 History release metoprolol succinate 50 mg 50 mg PO QAM 08/09/24 08/09/24 History tablet,extended release 24 hr (Toprol XL) Past Med/Surg History Problem List Cataract Chronic systolic (congestive) heart failure Ischemic cardiomyopathy Chronic headaches Cervical facet joint syndrome Cervical radiculopathy Tubular adenoma of colon Osteoarthritis of left knee BPH (benign prostatic hyperplasia) Diastolic dysfunction LVH (left ventricular hypertrophy) (Chronic) Male erectile disorder of organic origin (Acute) Malignant melanoma of skin (Acute) Psoriasis (Chronic) Hypertension (Chronic) Impaired fasting glucose (Chronic) Hypercholesteremia (Chronic) CAD (coronary artery disease) (Chronic) Family history of colon cancer (Chronic) Encounter for pre-operative examination Medical History Postoperative atrial fibrillation s/p CABG 03/2024 Was on Eliquis x 30 days ([facility] Cardiac surgery deferred to [facility] cardio regarding AF AC management; AC/Eliquis okay to discontinue per [facility] cardio) History of COVID-19 2020- [facility] 3 day admission, Covid PNA > resolved Rotator cuff tear, left Vertigo Iron deficiency anemia Arthralgia of multiple sites Elevated prostate specific antigen (PSA) Hx 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, congenital Ischemic cardiomyopathy Orthostatic hypotension History of ST elevation myocardial infarction (STEMI) STEMI Chronic systolic (congestive) heart failure LVH (left ventricular hypertrophy) BPH (benign prostatic hyperplasia) Hx History of colon polyps Anemia Chronic History of stroke (11/2022) "Mild one during cardiac cath" > mild balance issues Prediabetes Per records, patient denies Hyperlipidemia Hypertension History of melanoma Osteoarthritis Obesity CAD (coronary artery disease) 2005- RCA CIARA x2, mLAD CIARA November 2005; pLAD CIARA January 200611/2022- Stents x2 CABG x4 (04/27/24) Follows with [facility] cardio Hx of psoriasis History of psoriatic arthritis Surgical History History of anesthesia reaction Occasional slow to wake up Hx of CABG CABG x4 (04/27/24) Hx of cataract extraction R/L Hx of melanoma excision 10 hour surgery to remove Hx of arthroscopy of shoulder Right shoulder w/RCT repair History of colonoscopy History of arthroscopy right knee meniscus History of herniorrhaphy x1 History of cardiac cath 01/2024- no stents 11/2022- stents x3 2005- 2005- RCA CIARA x2, mLAD CIARA November 2005; pLAD CIARA January 2006 Family History Brother Family history of diabetes mellitus Grandmother Family history of diabetes mellitus Father Family hx of colon cancer Prostate cancer Mother Myocardial infarction Hx of CABG Hypertension Other No family history of adverse response to anesthesia Social History Smoking Status: Never smoker Second Hand Exposure: No; Do You Dip or Chew Tobacco: No; Hx Alcohol Use: No Hx Substance Use: No Preferred Language: Malay Communication Ability: Effective Visual Impairment: No Limitations Crusher Foreman Required: No Beliefs That Will Affect Care: None Current Living Situation: Spouse Current Living Situation Comment: Lives @ home w/ spouse current occupational status: retired current occupation: retired Feels Safe at Home: Yes Diet: regular caffeine: Yes Dental Care, Regularly: No Physical Activity Frequency: Daily Seatbelt Use: always Sunscreen Use: Yes Assistive Devices: Cane and Hearing Aid - Bilateral Review of Systems All systems reviewed & are unremarkable except as noted in HPI & below. Physical Exam On physical exam of the left knee, he has a varus deformity. He has tenderness to palpation of the distal medial femoral condyle and over the medial joint line.. Constitutional WD/WN, vitals as above Eyes PERRL, conjunctivae normal, anicteric sclerae ENMT external ear and nose normal, oropharynx normal Neck trachea midline, no thyromegaly Respiratory normal respiratory effort Cardiovascular RRR, no murmur, no edema Gastrointestinal (Abdomen) normal bowel sounds, soft, nontender, no hepatosplenomegaly Psychiatric A+Ox3, euthymic affect Results & Data Results & Data Laboratory Results . Diagnostic Findings X-rays of the left knee show advanced osteoarthritis with joint space narrowing, osteophyte summation, and [id number] articulation. PG Care Time/CCT Total # of Minutes Spent Total Time Spent with Patient: Total time spent is greater than 50% in coordination of care (as documented) at patient's floor/unit and/or counseling patient: Coding Level of Care Code None Diagnoses Osteoarthritis of left knee M17.12
[~2024-09-14 07:12] MED LIST changes: -ASPI-319 PO; +BUPIVACAINE 0.25% PF 30 ML VIAL ONE; +BUPIVACAINE 0.5 % 5 MG/1 ML PF 10ML VIAL ONE; -CLOP1TAB15 PO; -EZET10TA41 PO; -METO50TA8 PO; -NTRGSL/4 UT; +ROPIVACAINE 0.5% 5 MG/ML 30 ML VIAL ONE; -TRIA37.5 PO
[2024-09-14] MEDS ORDERED: PROPOFOL IV EMULSION 10 MG/ML 20 ML VIAL IV ONE ×2 (07:30→10:05)
[2024-09-14] MEDS ORDERED: MIDAZOLAM HCL 1 MG/ML 2ML VIAL ONE (07:31)
[2024-09-14] MEDS ORDERED: KETAMINE HCL 10MG/ML SYR ONE (07:31)
--- NOTE | 2024-09-14 08:02 | History & Physical Bridge Note ---
Date of Service September 14, 2024 History & Physical Bridge Note I have examined the patient, reviewed the History & Physical and in the interval since the performance of the History & Physical I have noted the following changes of clinical significance: no changes noted
[2024-09-14] MEDS: ACETAMINOPHEN 500 MG TAB PO SCH ×2 (08:12→16:42)
[2024-09-14] MEDS: GABAPENTIN 300 MG CAP PO SCH (08:12)
[2024-09-14] MEDS: LR 60ML/HR IV SCH (08:13)
[2024-09-14] MEDS: LR 500ML BOLUS, THEN 15ML/HR IV SCH (08:13)
[2024-09-14] MEDS: dexAMETHasone**PF** 10 MG/ML VIAL IV SCH (08:13)
[2024-09-14] MEDS: FAMOTIDINE 20 MG TAB PO SCH (08:13)
[2024-09-14] MEDS: TRANEXAMIC ACID 1,000 MG **IV Pre-op IV SCH (09:00)
[2024-09-14] MEDS ORDERED: ONDANSETRON INJ 2 MG/ML 2 ML VIAL IV PRN ×2 (09:25→13:10)
[2024-09-14] MEDS ORDERED: ATROPINE SULFATE 0.1 MG/ML 10ML SYR IV PRN (09:25)
[2024-09-14] MEDS: ROPIV 0.5% 246mg, Ketorolac 30mg, EPINEPHrine 0.5mg in NSS INFIL SCH (09:56)
[2024-09-14] MEDS: ORTHO JOINT ANESTHETIC ONE (09:57)
[2024-09-14] MEDS ORDERED: ONDANSETRON INJ 2 MG/ML 2 ML VIAL ONE (10:05)
[2024-09-14] MEDS ORDERED: DEXAMETHASONE SOD INJ 4 MG/ML VIAL ONE (10:05)
[2024-09-14] MEDS ORDERED: ePHEDrine sulfate 50 MG/5 ML SYR ONE (10:12)
--- NOTE | 2024-09-14 10:30 | Operative Report ---
PG Post Operative Report Pre & Post Diagnosis Operation Date: 09/14/24 09:00 Pre-Op Diagnosis: Left Knee Osteoarthritis Post-Op Diagnosis: Left Knee Osteoarthritis I identified the patient and participated in the time-out.: Yes Procedure Operation Date: 09/14/24 09:00 Actual Procedures p Left Total Knee Arthroplasty(Left) - Norm Cruz DO Surgeon Norm Cruz DO Net Software Developer Oswaldo Travis PA-C Estimated Blood Loss 30 Findings Consistent with Post-Op Diagnosis Specimens Left femoral and tibial bone Description of Procedure Implants used: I used a Ollie Persona total knee arthroplasty system with a size 11 standard PS femur, G tibia, 34 oval patella, and a size 14 CPS polyethylene bearing. All components were cemented in place with Biomet cement. Issa arrived [facility] for the above procedure. He was seen in the preoperative holding area and the operative extremity was identified and signed. He was given a preoperative antibiotic, TXA, a spinal anesthetic and an adductor nerve block. He was taken back to the operating room and laid on the table in supine position. He was given basic sedation. The operative knee was then prepped and draped in sterile fashion. A timeout was done, and the patient and the operative extremity was properly identified. A midline incision was made directly over the patella. Dissection was taken down to the extensor mechanism. A medial parapatellar arthrotomy was used. The medial retinaculum was released and the fat pad was mostly excised. The knee was flexed and the ACL, PCL, and meniscus were removed. A drill was sent down the center of the femoral canal followed by an intramedullary ken. Off that ken a distal femoral cutting block was placed. 9 mm was resected off the distal femur at 5 of valgus. A posterior referencing AP sizing guide was then placed on the distal femur. The femur measured to be a size 11. 2 drill holes were placed in 3 of external rotation. A 4-in-1 cutting block was then impacted into place. Anterior, posterior, and chamfer cuts were then made. The proximal tibia was then exposed. An external tibial alignment guide was placed. A tibial cut guide was then anchored in place and the proximal tibia was then resected. The posterior aspect of the knee was then opened up and any additional meniscus fragments and osteophytes were removed. The tibia measured to be a size G. The tibial plate was then placed in the appropriate rotation and the tibia was drilled and punched. Trial components were then placed. I used a size 14 CPS polyethylene insert. The knee was brought through a full range of motion and felt to be stable. The peg holes for the femoral component were then drilled. The patella was then everted and 9 mm was resected off the posterior aspect of the patella. The patella measured to be a size 34 oval. 3 peg holes were then drilled. A trial patella was placed. The knee was once again brought through a full range of motion and felt to be stable. Trial components were then removed. The surrounding soft tissues were injected with 100 cc of an orthopedic pain control cocktail. All components were then cemented into place with Biomet cement. The final polyethylene insert was then snapped into place. Once cement was dry the tourniquet was deflated. Hem ostasis was obtained. A dilute betadyne lavage was then done for 3 minutes. The joint was then irrigated with normal saline solution. The medial parapatellar arthrotomy was then closed with #1 Vicryl suture. The skin was closed with 2-0 Vicryl, 3-0V lock suture, and mahsa. A soft compressive dressing was placed. He was then transferred to a hospital bed and taken to the postanesthesia care unit in stable condition. He tolerated the procedure well. Oswaldo Travis PA-C, was present for the entire procedure. He was critical for patient positioning, prepping, draping, retraction exposure, wound closure and application of sterile dressing. I attest to the content of the Intraoperative Record and any orders documented therein. Any exceptions are noted below.
[2024-09-14] MEDS ORDERED: PHENYLEPHRINE 100MCG/ML 5ML SYR ONE (10:34)
--- NOTE | 2024-09-14 11:15 | XRay Report ---
TWO VIEWS LEFT KNEE CLINICAL HISTORY: Postoperative examination. FINDINGS: AP and crosstable lateral portable views of the left knee are obtained. A left knee arthrop lasty is in near anatomic alignment. There has been undersurface remodeling of the patella. No acute fracture is seen. Soft tissue edema and subcutaneous gas are expected postsurgical findings. There is atherosclerotic calcification of the popliteal artery. IMPRESSION: Expected postoperative changes status post left knee arthroplasty. No acute fracture is s een. ACT 112: Negative or not required by law. Electronically signed by: Gabe Boiwe M.D. 09/14/2024 11:13 AM
--- NOTE | 2024-09-14 12:10 | Anesthesiology Progress Note ---
Date of Service September 14, 2024 Anesthesia Post Procedure Vital Signs Vital Signs: Temp Pulse Pulse Resp BP Pulse Ox O2 Del Method 09/14/24 12:05 60 20 124/71 96 Nasal Cannula 09/14/24 11:55 57 L 16 126/70 95 Nasal Cannula 09/14/24 11:45 58 L 22 117/74 95 Oxymask 09/14/24 11:35 61 22 119/72 98 Oxymask 09/14/24 11:25 36.3 C L 59 L 22 125/72 97 Oxymask 09/14/24 11:15 59 L 20 126/65 95 Oxymask 09/14/24 11:05 61 16 117/66 98 Oxymask 09/14/24 10:57 36.2 C L 60 22 118/62 96 Oxymask 09/14/24 07:34 36.8 C 67 20 158/87 H 95 Room Air O2 Flow Rate 09/14/24 12:05 2 09/14/24 11:55 2 09/14/24 11:45 1 09/14/24 11:35 3 09/14/24 11:25 4 09/14/24 11:15 6 09/14/24 11:05 8 09/14/24 10:57 8 09/14/24 07:34 Transfer of Care Handoff Completed per policy Notes Mental Status: alert / awake / arousable Patient Amnestic to Procedure: Yes Nausea / Vomiting: adequately controlled Pain: adequately controlled Airway Patency, RR, SpO2: stable & adequate BP & HR: stable & adequate Hydration State: stable & adequate Neuraxial Anesthesia: was administered and sensory block is resolving Anesthetic Complications: no major complications apparent and Pt Satisfied with anesthetic care
[2024-09-14] MEDS ORDERED: HYDROmorphone INJ 0.5 MG/0.5 ML SYR IV PRN (13:10)
[2024-09-14] MEDS ORDERED: NALOXONE HCL 0.4 MG/1 ML VIAL/CARP IV PRN (13:10)
[2024-09-14] MEDS ORDERED: MAGNESIUM HYDROXIDE SUSP 30 ML UDC PO PRN (13:10)
[2024-09-14] MEDS ORDERED: METOCLOPRAMIDE HCL INJ 5 MG/ML 2 ML VIAL IV PRN (13:10)
[2024-09-14] MEDS: SODIUM CHLORIDE 0.9% 1,000 ML IV SCH (13:45)
[2024-09-14] MEDS: KETOROLAC TROMETHAMINE 15 MG/ML VIAL IV SCH (13:46)
[2024-09-14] MEDS: DOCUSATE SODIUM 100 MG CAP PO SCH (20:52)
[2024-09-14] MEDS: ATORVASTATIN 40 MG TAB PO SCH (20:52)
[2024-09-14] MEDS: ASPIRIN 81 MG ECTAB PO SCH (20:53)
[2024-09-14] MEDS: SENNA 8.6 MG TAB PO SCH (20:53)
[2024-09-15 07:14] VITALS: BP 146/74; PULSE 62; RESP 18; TEMP 97.7; O2SAT 95
--- NOTE | 2024-09-15 07:52 | Orthopedic Progress Note ---
Date of Service September 15, 2024 Assessment & Plan (1) Status post left knee replacement: Overall he is doing fairly well. He is not having too much pain in the left knee. He has been up and ambulating to the bathroom. He will be seen by physical therapy today for ambulation and range of motion exercises. The nursing staff can remove the Gary wrap and cotton dressing today. Leave the Silverlon in place. They may replace the Silverlon if it saturated. He is on aspirin for DVT prophylaxis. He can be discharged home later today. He will follow-up with orthopedics in 2 weeks. Subjective Issa was seen and examined at bedside this morning. Overall he is doing very well. He is not having much pain in the left knee. Has been up and ambulating to the bathroom. He has no complaints.. Review of Systems All systems reviewed & are unremarkable except as noted in HPI & below. Physical Exam Physical exam of the left knee shows the dressing to be clean and dry. His leg is out full extension. He has active dorsiflexion plantarflexion of his left ankle. Results & Data Results & Data Laboratory Results . Diagnostic Findings Postoperative x-rays of the left knee show the prosthesis to be in anatomic alignment without any evidence of fracture complication, or loosening.. PG Care Time/CCT Total # of Minutes Spent Total Time Spent with Patient: Total time spent is greater than 50% in coordination of care (as documented) at patient's floor/unit and/or counseling patient: Coding Level of Care Code 56611 Post Operative Follow-Up Diagnoses Status post left knee replacement Z96.652
[2024-09-15] MEDS: MULTIVITAMIN TAB PO SCH (08:09)
[2024-09-15] MEDS: METOPROLOL SUCC 50MG EXT REL TAB PO SCH (08:10)
== END 2024-09-15 12:55 | disposition home or self-care (01) ==
LOC: ASU 07:12 → 3W 07:12